=== PATIENT | female | born 1945 | race Caucasian/White ===

== ENCOUNTER 2016-12-31 18:35 | Observation (INO) ==
--- NOTE | 2016-12-31 18:53 | Emergency Department Note ---
Disposition Clinical Impression: Chest pain Disposition: Admitted As Inpatient Condition: Fair General Adult HPI - General Chief complaint: ED Chest Pain Stated complaint: "chest discomfort" Time Seen by Provider: 12/31/16 18:48 Source: patient Limitations: no limitations - History of Present Illness Pain Scale: 5 - Related Data Home Medications Medication Instructions Recorded Confirmed Calcium Carbonate/Vitamin D3 1 each PO BID 11/13/15 12/31/16 [Calcium 600 + Vit D Softgel] Hydrochlorothiazide 25 mg PO DAILY 11/13/15 12/31/16 Potassium Chloride [K-Tab ER] 20 meq PO TID 11/13/15 12/31/16 Cholecalciferol (D-3) [Vitamin D] 5,000 unit PO DAILY 09/17/16 12/31/16 Diazepam [Valium] 5 mg PO HS PRN 12/31/16 12/31/16 Previous Rx's Medication Instructions Recorded Apixaban [Eliquis] 5 mg PO BID #60 tablet 09/18/16 Metoprolol XL (24 HR) Succ [Toprol 12.5 mg PO DAILY #30 tab.er.24h 09/19/16 Xl] Nitroglycerin 0.4 mg SL Q5MIN PRN #10 tab.subl 09/19/16 Raloxifene [Evista] 60 mg PO DAILY #90 tablet 11/15/16 Allergies Allergy/AdvReac Type Severity Reaction Status Date / Time methocarbamol [From Robaxin] Allergy Hives Verified 07/20/15 08:56 promethazine [From Phenergan] AdvReac See Verified 07/20/15 08:56 Comments Past Medical History - Past Medical History Medical history: Reports: hyperlipidemia, hypertension Psychiatric history: Reports: no psych history - Social History Smoking Status: Never smoker Smokeless Tobacco Status: No Alcohol use: Reports: none Drug use: Reports: none Physical Exam - General Limitations: no limitations General appearance: alert Course Vital Signs Temperature 98.2 F 12/31/16 18:45 Pulse Rate 60 12/31/16 18:45 Respiratory Rate 20 12/31/16 18:45 Blood Pressure 144/82 12/31/16 18:45 O2 Sat by Pulse Oximetry 95 12/31/16 18:45 Temperature 98.2 F 12/31/16 18:45 Pulse Rate 60 12/31/16 18:45 Respiratory Rate 16 12/31/16 21:45 Blood Pressure 112/64 12/31/16 21:45 O2 Sat by Pulse Oximetry 95 12/31/16 18:45 Oxygen Delivery Oxygen Delivery Room Air Medical Decision Making - Lab Data Result diagrams: 12/31/16 19:14 12/31/16 19:14 Lab Results 12/31/16 12/31/16 12/31/16 Range/Units 19:14 19:14 19:14 WBC 4.1 L (4.3-11.1) K/mcL RBC 3.59 L (3.82-4.97) M/mcL Hgb 11.2 L (11.5-15.4) g/dL Hct 33.3 L (35.3-44.9) % MCV 92.8 (83.0-100.0) fL MCH 31.2 (28.0-33.3) pg MCHC 33.6 (31.6-35.5) g/dL RDW 12.7 (11.5-14.5) % Plt Count 166 (140-400) K/mcL MPV 11.1 (9.4-12.4) fL Immature Gran % 0.2 (0-4) % Seg Neutrophils % 62.9 % Lymphocytes % 23.5 % Monocytes % 9.3 % Eosinophils % 3.4 % Basophils % 0.7 % Neutrophils # 2.6 (1.6-8.9) K/mcL Lymphocytes # 1.0 (0.6-4.6) K/mcL Monocytes # 0.4 (0.0-1.3) K/mcL Eosinophils # 0.1 (0.0-0.6) K/mcL Basophils # 0.0 (0.0-0.2) K/mcL PT 20.2 H (9.4-12.1) Seconds INR 1.8 APTT 37.5 H (26.0-36.0) Seconds Sodium (136-145) mEq/L Potassium (3.5-4.5) mEq/L Chloride (98-109) mEq/L Carbon Dioxide (19-29) mEq/L BUN (7-20) mg/dL Creatinine (0.57-1.11) mg/dL Est GFR ( Amer) (> 60) Est GFR (Non-Af Amer) (> 60) BUN/Creatinine Ratio (6-26) Glucose (70-99) mg/dL Calculated Osmolality (280-300) Calcium (8.6-10.8) mg/dL Troponin I (0-0.03) ng/mL B-Natriuretic Peptide 558 H (0-100) pg/mL 12/31/16 12/31/16 Range/Units 19:14 19:14 WBC (4.3-11.1) K/mcL RBC (3.82-4.97) M/mcL Hgb (11.5-15.4) g/dL Hct (35.3-44.9) % MCV (83.0-100.0) fL MCH (28.0-33.3) pg MCHC (31.6-35.5) g/dL RDW (11.5-14.5) % Plt Count (140-400) K/mcL MPV (9.4-12.4) fL Immature Gran % (0-4) % Seg Neutrophils % % Lymphocytes % % Monocytes % % Eosinophils % % Basophils % % Neutrophils # (1.6-8.9) K/mcL Lymphocytes # (0.6-4.6) K/mcL Monocytes # (0.0-1.3) K/mcL Eosinophils # (0.0-0.6) K/mcL Basophils # (0.0-0.2) K/mcL PT (9.4-12.1) Seconds INR APTT (26.0-36.0) Seconds Sodium 144 (136-145) mEq/L Potassium 3.2 L (3.5-4.5) mEq/L Chloride 108 (98-109) mEq/L Carbon Dioxide 27 (19-29) mEq/L BUN 17 (7-20) mg/dL Creatinine 0.78 (0.57-1.11) mg/dL Est GFR ( Amer) > 60 (> 60) Est GFR (Non-Af Amer) > 60 (> 60) BUN/Creatinine Ratio 22 (6-26) Glucose 133 H (70-99) mg/dL Calculated Osmolality 301 H (280-300) Calcium 9.5 (8.6-10.8) mg/dL Troponin I 0.01 (0-0.03) ng/mL B-Natriuretic Peptide (0-100) pg/mL Attestation Statement - Attestation Attestation: I examined this patient and my medical decision-making was reviewed with the [employer] EGG/PA/Advanced Practice Nurse/Resident Physician. I agree with the documented findings, disposition and treatment plan as described except to the extent set forth below. Colv-qa-pumb time provided to face time provided. Patient ambulates to the treatment area complaining of chest discomfort that started this afternoon. She also felt fatigued and nauseated. No exertional dyspnea on exam. She appears in no acute distress.
--- NOTE | 2016-12-31 19:04 | Emergency Department Note ---
Disposition Clinical Impression: Chest pain Qualifiers: Chest pain type: unspecified Qualified Code(s): R07.9 - Chest pain, unspecified Disposition: Admitted As Inpatient Condition: Fair Time of Disposition: 20:34 Chest Pain HPI - General Chief Complaint: ED Chest Pain Stated Complaint: "chest discomfort" Time Seen by Provider: 12/31/16 18:48 Source: patient Limitations: no limitations Vital Signs Reviewed: Yes Nursing Notes Reviewed: Yes - History of Present Illness HPI Narrative: 71-year-old female history of A. fib on Eliquis, presenting with chest pain at rest, she started feeling 10 out of 10 chest pain last night, and had several episodes of chest pain around noon today, she describes as 10 out of 10, sharp chest pain in her substernal area with radiation to right chest, she currently feels one out of 10 chest pressure. Patient is a history of hypertension, family history of [place], and is a nonsmoker and nondiabetic, she was recently diagnosed with atrial fibrillation 3 months ago, placed on Eliquis with some metoprolol which she takes and has been rate controlled. With only a few episodes of refractory tachycardia that she is not evaluated for. 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 She stated that the pain was associated with shortness of breath. She denied nausea and vomiting. Patient denies abdominal pain currently denies nausea vomiting diarrhea constipation hematuria dysuria bleeding recent fever or chills. Pt complaint: chest pain Onset (ago): hour(s) Duration: intermittent, now resolved Onset: during rest Pain Location: substernal, right chest Severity: moderate Severity scale (1-10): 5 Pain Radiation: none Improves with: nothing Worsens with: nothing Associated symptoms: Reports: nausea Treatments prior to arrival chest pain: none - Related Data Home Medications Medication Instructions Recorded Confirmed Calcium Carbonate/Vitamin D3 1 each PO BID 11/13/15 11/15/16 [Calcium 600 + Vit D Softgel] Hydrochlorothiazide 25 mg PO DAILY 11/13/15 11/15/16 Potassium Chloride [K-Tab ER] 20 meq PO TID 11/13/15 11/15/16 Cholecalciferol (D-3) [Vitamin D] 5,000 unit PO DAILY 09/17/16 11/15/16 Diazepam [Valium] 5 mg PO HS PRN 12/31/16 12/31/16 Previous Rx's Medication Instructions Recorded Apixaban [Eliquis] 5 mg PO BID #60 tablet 09/18/16 Metoprolol XL (24 HR) Succ [Toprol 12.5 mg PO DAILY #30 tab.er.24h 09/19/16 Xl] Nitroglycerin 0.4 mg SL Q5MIN PRN #10 tab.subl 09/19/16 Raloxifene [Evista] 60 mg PO DAILY #90 tablet 11/15/16 Allergies Allergy/AdvReac Type Severity Reaction Status Date / Time methocarbamol [From Robaxin] Allergy Hives Verified 07/20/15 08:56 promethazine [From Phenergan] AdvReac See Verified 07/20/15 08:56 Comments Review of Systems: All systems were reviewed with historian and negative except as per below, or as documented in the HPI. Constitutional: Denies: fever, chills, weight changes Eyes: Denies: vision changes, eye pain ENT: Denies: nasal congestion, sore throat CV: + chest pain positive for dyspnea Denies: palpitations, leg swelling Resp: Denies: cough, dyspnea, wheezes, hemoptysis GI: Denies: abdominal pain, N/V/D/C, hematochezia All systems ED: reviewed and negative except as stated. Chest Pain PMH - Past Medical History Medical history: Reports: hyperlipidemia, hypertension Psychiatric history: Reports: no psych history - Social History Smoking Status: Never smoker Alcohol use: Reports: none Drug use: Reports: none Physical Exam Constitutional: Thin elderly female appears in no acute distress. HEENT: NCAT, sclera anicteric, PERRLA bilaterally, normal external ears bilaterally, nasal septum nondeviated, average dentition, MMM Neck: normal inspection, neck is supple, trachea midline, no JVD Resp: normal chest inspection, CTA bilaterally, no resp distress, symmetric chest rise CV: bradycardia, no m/g/r, Pulses +2 Rad, +2 DP/PT bilaterally, no pedal edema GI: normal inspection, Soft, NTND, BS present and normoactive Skin: No rashes, skin warm, dry, intact - General Limitations: no limitations General appearance: alert Course Course Narrative: 71-year-old female with history of A. fib on anticoagulation with L a twist, presents with chest pain or rest, several episodes throughout the day. Patient also has sinus bradycardia on EKG and rhythm monitoring, no acute pain now it did resolve spontaneously, or aspirin, the chest pain workup with chest x-ray troponins reassess. - Reevaluation(s) Reevaluation #1: Admitted to Dr Ly in stable condition for cp rule out Vital Signs Temperature 98.2 F 12/31/16 18:45 Pulse Rate 60 12/31/16 18:45 Respiratory Rate 20 12/31/16 18:45 Blood Pressure 144/82 12/31/16 18:45 O2 Sat by Pulse Oximetry 95 12/31/16 18:45 Temperature 98.2 F 12/31/16 18:45 Pulse Rate 60 12/31/16 18:45 Respiratory Rate 20 12/31/16 18:45 Blood Pressure 144/82 12/31/16 18:45 O2 Sat by Pulse Oximetry 95 12/31/16 18:45 Oxygen Delivery Oxygen Delivery Room Air Chest Pain - MDM Narrative Medical decision making narrative: 71-year-old female A. fib on health course and metoprolol, presents with chest pain at rest throughout the day today, now resolved, given aspirin, troponin negative EKG shows sinus bradycardia subtle T-wave inversions that appear on previous EKG, BNP was elevated evidence of heart failure clinically, chest x- ray negative, making to medicine for further workup including trending troponins and possible repeat echo and cardioogy consult - Differential Diagnosis Likely: fracture of rib, atypical chest pain, chest pain - Medical Records Medical records reviewed: Yes I reviewed the patient's medical records. - Lab Data Lab results reviewed: Yes I reviewed the patient's lab results. Result diagrams: 12/31/16 19:14 12/31/16 19:14 Lab Results 12/31/16 12/31/16 12/31/16 Range/Units 19:14 19:14 19:14 WBC 4.1 L (4.3-11.1) K/mcL RBC 3.59 L (3.82-4.97) M/mcL Hgb 11.2 L (11.5-15.4) g/dL Hct 33.3 L (35.3-44.9) % MCV 92.8 (83.0-100.0) fL MCH 31.2 (28.0-33.3) pg MCHC 33.6 (31.6-35.5) g/dL RDW 12.7 (11.5-14.5) % Plt Count 166 (140-400) K/mcL MPV 11.1 (9.4-12.4) fL Immature Gran % 0.2 (0-4) % Seg Neutrophils % 62.9 % Lymphocytes % 23.5 % Monocytes % 9.3 % Eosinophils % 3.4 % Basophils % 0.7 % Neutrophils # 2.6 (1.6-8.9) K/mcL Lymphocytes # 1.0 (0.6-4.6) K/mcL Monocytes # 0.4 (0.0-1.3) K/mcL Eosinophils # 0.1 (0.0-0.6) K/mcL Basophils # 0.0 (0.0-0.2) K/mcL PT 20.2 H (9.4-12.1) Seconds INR 1.8 APTT 37.5 H (26.0-36.0) Seconds Sodium (136-145) mEq/L Potassium (3.5-4.5) mEq/L Chloride (98-109) mEq/L Carbon Dioxide (19-29) mEq/L BUN (7-20) mg/dL Creatinine (0.57-1.11) mg/dL Est GFR ( Amer) (> 60) Est GFR (Non-Af Amer) (> 60) BUN/Creatinine Ratio (6-26) Glucose (70-99) mg/dL Calculated Osmolality (280-300) Calcium (8.6-10.8) mg/dL Troponin I (0-0.03) ng/mL B-Natriuretic Peptide 558 H (0-100) pg/mL 12/31/16 12/31/16 Range/Units 19:14 19:14 WBC (4.3-11.1) K/mcL RBC (3.82-4.97) M/mcL Hgb (11.5-15.4) g/dL Hct (35.3-44.9) % MCV (83.0-100.0) fL MCH (28.0-33.3) pg MCHC (31.6-35.5) g/dL RDW (11.5-14.5) % Plt Count (140-400) K/mcL MPV (9.4-12.4) fL Immature Gran % (0-4) % Seg Neutrophils % % Lymphocytes % % Monocytes % % Eosinophils % % Basophils % % Neutrophils # (1.6-8.9) K/mcL Lymphocytes # (0.6-4.6) K/mcL Monocytes # (0.0-1.3) K/mcL Eosinophils # (0.0-0.6) K/mcL Basophils # (0.0-0.2) K/mcL PT (9.4-12.1) Seconds INR APTT (26.0-36.0) Seconds Sodium 144 (136-145) mEq/L Potassium 3.2 L (3.5-4.5) mEq/L Chloride 108 (98-109) mEq/L Carbon Dioxide 27 (19-29) mEq/L BUN 17 (7-20) mg/dL Creatinine 0.78 (0.57-1.11) mg/dL Est GFR ( Amer) > 60 (> 60) Est GFR (Non-Af Amer) > 60 (> 60) BUN/Creatinine Ratio 22 (6-26) Glucose 133 H (70-99) mg/dL Calculated Osmolality 301 H (280-300) Calcium 9.5 (8.6-10.8) mg/dL Troponin I 0.01 (0-0.03) ng/mL B-Natriuretic Peptide (0-100) pg/mL - Radiology Data Radiology results reviewed: Yes I reviewed the patient's radiology results. Chest X-Ray 12/31/16 18:49 IMPRESSION: Cardiomegaly, no acute pulmonary disease. D/ / 12/31/2016 20:09:59 Sunil Greer MD / [facility] Interpreting Provider: Sunil Greer MD - EKG Data EKG attestation: Yes I reviewed and interpreted this EKG. EKG shows normal: sinus rhythm Rate: bradycardia (MT 137; QRS 92; QT411) [place]/QRS: normal ST segment depression in: II, v5, v6 Interpretation: unchanged when compared to prior tracing (date) (2015) - Core Measures AMI Core Measures Followed: Yes Heart Score - Score History: Slightly Suspicious EKG: Non Specific repolarisation Disturbance Age: Greater than 65 Risk Factors: 1-2 risk factors Troponin: Less than normal limit HEART Score Total: 4
[2016-12-31] MEDS ORDERED: Aspirin 81 MG TAB.CHEW PO ONE (19:07)
[2016-12-31 19:23] LABS: Basophils % 0.7 %; Eosinophils # 0.1 K/mcL (0.0-0.6); Eosinophils % 3.4 %; Hematocrit 33.3 % (35.3-44.9); Hemoglobin 11.2 g/dL (11.5-15.4); Immature Granulocytes % 0.2 % (0-4); Lymphocytes % 23.5 %; Mean Corpuscular HGB Conc 33.6 g/dL (31.6-35.5); Mean Corpuscular Hemoglobin 31.2 pg (28.0-33.3); Mean Corpuscular Volume 92.8 fL (83.0-100.0); Mean Platelet Volume 11.1 fL (9.4-12.4); Monocytes # 0.4 K/mcL (0.0-1.3); Monocytes % 9.3 %; Neutrophils # 2.6 K/mcL (1.6-8.9); Platelet Count 166 K/mcL (140-400); Red Blood Count 3.59 M/mcL (3.82-4.97); Red Cell Distribution Width 12.7 % (11.5-14.5); Segmented Neutrophils % 62.9 %
[2016-12-31 19:25] LABS: INR 1.8; Prothrombin Time 20.2 Seconds (9.4-12.1)
[2016-12-31 19:28] LABS: Activated Partial Thrombo Time 37.5 Seconds (26.0-36.0)
[2016-12-31 19:33] LABS: BUN/Creatinine Ratio 22 (6-26); Blood Urea Nitrogen 17 mg/dL (7-20); Calcium 9.5 mg/dL (8.6-10.8); Carbon Dioxide 27 mEq/L (19-29); Chloride 108 mEq/L (98-109); Glucose 133 mg/dL (70-99); Osmolality,Calculated 301 (280-300); Potassium 3.2 mEq/L (3.5-4.5); Sodium 144 mEq/L (136-145); eGFR For African Americans > 60 (> 60); eGFR For Non-African Americans > 60 (> 60)
[2016-12-31] MEDS ORDERED: Acetaminophen 325 MG TABLET PO PRN (22:08)
[2016-12-31] MEDS ORDERED: Naloxone 0.4 MG/ML INJ IVP PRN (22:08)
[2016-12-31] MEDS ORDERED: *HR* Morphine 2 MG/ML SYRINGE IVP PRN (22:08)
[2016-12-31] MEDS ORDERED: Ondansetron ODT 4 MG TAB.RAPDIS SL PRN (22:08)
[2016-12-31] MEDS ORDERED: diazePAM 5 MG TABLET PO PRN (22:13)
--- NOTE | 2016-12-31 22:24 | Internal Med History&Physical ---
<VallecilloBruno - Last Filed: 12/31/16 22:24> Date of Encounter: 12/31/16 Time of Encounter: 22:18 Assessment and Plan (1) Chest pain Current visit: Yes Status: Acute Unclear etiology at this point, but cannot rule out cardiac She recently had echocardiogram obtained 3 months ago so there is no need for repeat Will order pharmacologic stress test to be performed tomorrow; will make NPO at midnight and hold home beta blockers Start on low dose ASA and Lipitor daily; will check Lipid panel in AM Initial troponin negative, will trend x2 Qualifiers: Chest pain type: unspecified Qualified Code(s): R07.9 - Chest pain, unspecified; R07.8 - Other chest pain (2) Paroxysmal atrial fibrillation Current visit: No Status: Chronic She is currently in NSR but is slightly bradycardic Will home Toprol for upcoming stress test and low HR 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 Crump is a 71 year old female who presents to the ED with chest pain that started last night at 10 PM. She states she was trying to go to bed last night and felt sudden, sharp chest pain that radiated to the right side of her chest. It lasted only a few seconds and resolved spontaneously. Today, patient had another episode around noon and again prior to arrival. She has associated shortness of breath during these episodes but denies any palpitations, diaphoresis, nausea, or vomiting. She denies recent illness or sick contacts. Of note, patient was recently diagnosed with AFib 3 months ago where she was admitted her with chest pain. She is currently on Toprol and Eliquis, but denies any issues with bleeding. Patient did mention also having chest pain in 2013 and she received a C and also had stress tests done, all of which were negative. Currently, patient is not having any chest pain and denies any issues with shortness of breath, nausea, vomiting, fevers, constipation or diarrhea. Past Med Surg Social Fam HX - Past Medical History Medical history: hyperlipidemia, hypertension Psychiatric history: no psych history - Social History Smoking Status: Never smoker Smokeless Tobacco Status: No Alcohol use: none Drug use: none Internal Medicine - H&P: Meds Calcium Carbonate/Vitamin D3 [Calcium 600 + Vit D Softgel] 1 each PO BID [History] Hydrochlorothiazide 25 mg PO DAILY 11/13/15 [History] Potassium Chloride [K-Tab ER] 20 meq PO TID 11/13/15 [History] Cholecalciferol (D-3) [Vitamin D] 5,000 unit PO DAILY 09/17/16 [History] Apixaban [Eliquis] 5 mg PO BID #60 tablet 09/18/16 [Rx] Metoprolol XL (24 HR) Succ [Toprol Xl] 12.5 mg PO DAILY #30 tab.er.24h 09/19/16 [Rx] Nitroglycerin 0.4 mg SL Q5MIN PRN #10 tab.subl 09/19/16 [Rx] Raloxifene [Evista] 60 mg PO DAILY #90 tablet 11/15/16 [Rx] Diazepam [Valium] 5 mg PO HS PRN 12/31/16 [History] Allergies methocarbamol [From Robaxin] Allergy (Verified 07/20/15 08:56) Hives promethazine [From Phenergan] Adverse Reaction (Verified 07/20/15 08:56) See Comments muscle spasms All Systems PM: A 10-system review of systems was performed and is negative for pertinent findings except as documented above in the HPI. - Constitutional Constitutional: no chills, no fever(s), no night sweats - EENT Eyes: no change in vision, no discharge, no pain, no photophobia Ears: no ear discharge, no ear pain, no tinnitus Nose, mouth and throat: no dysphagia, no nasal discharge, no neck pain, no sore throat - Cardiovascular Cardiovascular ROS IM: chest pain, dyspnea, no diaphoresis, no lightheadedness, no palpitations, no syncope - Respiratory Respiratory: no cough, no dyspnea, no wheezing, no excessive phlegm production - Gastrointestinal Gastrointestinal: no abdominal pain, no diarrhea, no hematemesis, no hematochezia, no melena, no nausea, no vomiting - Genitourinary Genitourinary: no change in urinary stream, no dysuria, no flank pain, no hematuria - Musculoskeletal Musculoskeletal ROS IM: no numbness, no tingling - Integumentary Integumentary IM: no rash, no unusual bruising - Neurological Neurological ROS: no confusion, no convulsions, no focal weakness, no numbness, no tingling, no tremor(s) - Hematologic/Lymphatic Hematologic/Lymphatic: no easy bruising - Constitutional Vitals: Temp Pulse Resp BP Pulse Ox 98.2 F 60 16 112/64 95 12/31/16 18:45 12/31/16 18:45 12/31/16 21:45 12/31/16 21:45 12/31/16 18:45 General appearance: Present: cooperative, pleasant, no acute distress, answers questions appropriately - Head Head exam: Present: atraumatic, normocephalic - Eye Eye exam: Present: PERRL, conjuntiva pink, sclera anicteric - Neck Neck exam general surgery: Present: supple, trachea midline. Absent: lymphadenopathy - Respiratory Respiratory exam: Present: CTAB. Absent: accessory muscle use, rales, rhonchi, wheezes - Cardiovascular Cardiovascular exam: Present: bradycardia, +S1, +S2. Absent: diastolic murmur, gallop, rubs, systolic murmur - GI/Abdominal GI/Abdominal exam: Present: normal bowel sounds, soft, no peritoneal signs. Absent: distended, tenderness - Extremities Exam Extremities exam: Present: warm, radial pulses palpable and symetrical. Absent : calf tenderness, cyanotic, pedal edema - Neurological Exam Neurological exam: Present: alert, no focal deficits. Absent: facial droop, speech deficit - Skin Skin exam: Present: dry, intact Internal Med - H&P Results - Labs CBC & Chem 7: 12/31/16 19:14 12/31/16 19:14 <Sandie Ly - Last Filed: 12/31/16 23:01> Date of Encounter: 12/31/16 Assessment and Plan (1) Chest pain Current visit: Yes Status: Acute Qualifiers: Chest pain type: other chest pain Qualified Code(s): R07.89 - Other chest pain; R07.8 - Other chest pain (2) Hypertension Current visit: Yes Status: Chronic Qualifiers: Qualified Code(s): I10 - Essential (primary) hypertension (3) Paroxysmal atrial fibrillation Current visit: No Status: Chronic Internal Medicine - H&P: HPI History of present illness: Ms. Crump is a 71 year old female All Systems PM: A 10-system review of systems was performed and is negative for pertinent findings except as documented above in the HPI. - Constitutional Vitals: Temp Pulse Resp BP Pulse Ox 98.2 F 60 16 112/64 95 12/31/16 18:45 12/31/16 18:45 12/31/16 21:45 12/31/16 21:45 12/31/16 18:45 Internal Med - H&P Results - Labs CBC & Chem 7: 12/31/16 19:14 12/31/16 19:14 - Attending Attestation I examined this patient and my medical decision-making was reviewed with the Resident Physician. I agree with the documented history of present illness, review of systems, past medical, surgical social and family histories and examination findings, disposition and treatment plan as described above except to any changes set forth below. 71-year-old female patient with history of hypertension, breast cancer, on Eliquis for anticoagulation presented to the ER with right-sided chest pain. Sharp and lasting just a few seconds but severe and intense. No relation to activity. Began today. Has been having chest pressure in her central chest occasionally. Negative left heart catheterization 3 years back. On examination: Patient is awake, alert and oriented. Respiratory examination shows normal breath sounds bilaterally. Cardiovascular examination shows regular rhythm and normal heart sounds without any murmurs. No chest wall tenderness. No pedal edema. EKG shows normal sinus rhythm with bradycardia. ST depression noted in leads 2 , V5 and V6 which is similar compared to previous EKG. Chest x-ray shows cardiomegaly without any congestive or infiltrative changes. Right-sided chest pain: Most likely musculoskeletal/costochondritis-like pain. However given history of hypertension and age, sex high risk for coronary artery disease. Will place on telemetry. Trend troponins. Cardiac stress test tomorrow. Chronic hypokalemia: Potassium is 3.2. Will replace orally. Paroxysmal atrial fibrillation: Patient appears to be in sinus rhythm at this time. Continue Eliquis.
[2016-12-31] MEDS ORDERED: Nitroglycerin 0.4 MG TAB.SUBL SL PRN (23:01)
[2016-12-31] MEDS: APIXABAN 5 MG TABLET PO SCH (23:01)
[2017-01-01 00:20] LABS: Basophils % 0.5 %; Eosinophils # 0.1 K/mcL (0.0-0.6); Hematocrit 32.1 % (35.3-44.9); Hemoglobin 10.6 g/dL (11.5-15.4); Immature Granulocytes % 0.2 % (0-4); Lymphocytes # 0.9 K/mcL (0.6-4.6); Lymphocytes % 20.5 %; Mean Corpuscular Hemoglobin 30.5 pg (28.0-33.3); Mean Corpuscular Volume 92.5 fL (83.0-100.0); Mean Platelet Volume 10.6 fL (9.4-12.4); Monocytes # 0.4 K/mcL (0.0-1.3); Monocytes % 9.6 %; Neutrophils # 2.8 K/mcL (1.6-8.9); Platelet Count 151 K/mcL (140-400); Red Blood Count 3.47 M/mcL (3.82-4.97); Red Cell Distribution Width 12.8 % (11.5-14.5); Segmented Neutrophils % 66.2 %
[2017-01-01 00:36] LABS: BUN/Creatinine Ratio 28 (6-26); Blood Urea Nitrogen 21 mg/dL (7-20); Carbon Dioxide 28 mEq/L (19-29); Chloride 108 mEq/L (98-109); Chol/HDL Ratio 3.1 (0-4.9); Cholesterol 159 mg/dL (< 200); Glucose 111 mg/dL (70-99); HDL Cholesterol 51 mg/dL (40-59); LDL Cholesterol,Calculated 91 mg/dL (0-99); Magnesium 1.3 mg/dL (1.6-2.6); Osmolality,Calculated 300 (280-300); Phosphorous 4.1 mg/dL (2.3-4.7); Potassium 3.4 mEq/L (3.5-4.5); Sodium 143 mEq/L (136-145); Triglycerides 87 mg/dL (< 150); eGFR For African Americans > 60 (> 60); eGFR For Non-African Americans > 60 (> 60)
[2017-01-01] MEDS ORDERED: APIXABAN 5 MG TABLET PO SCH (09:00)
[2017-01-01] MEDS ORDERED: hydroCHLOROthiazide 25 MG TABLET PO SCH (09:00)
[2017-01-01] MEDS ORDERED: Aspirin 81 MG TAB.CHEW PO SCH (09:00)
--- NOTE | 2017-01-01 09:58 | Electrocardiograph Report ---
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
[2017-01-01] MEDS: APIXABAN 5 MG TABLET PO SCH (09:59)
[2017-01-01] MEDS: Regadenoson 0.4 MG/5 ML SYRINGE IVP ONE ×2 (10:06→10:52)
--- NOTE | 2017-01-01 11:05 | Nuclear Medicine Stress Report ---
Regadenoson Nuclear Stress Name: Vandana Crump Date of Study: 01/01/2017 Date: 1945 Ht: 60.0 in Medical Record#: [id number] Age: 71 Wt: 124.0 lb Gender: Female Order #: [id number] Location: [facility] Room: [facility] Supervising Provider: Lamine Lai CNP Reading Physician: Jay Flynn MD, [facility] Ordering Physician: Mary Valladares CNP Primary Care Physician: Marcos Bolanos DO Stress Technologist: Bridget Michelle PIG FARM MANAGER, CCT Cigarette Machines Mechanic: Shan Quispe Indications: Chest Pain Impression: Patient was in a junctional rhythm throughout the study. Pharmacologic stress ECG is non-diagnostic for ischemia due to baseline ST-T wave abnormalities. Gated LVEF = 67%. Perfusion imaging was negative for ischemia or infarct. History: Hypertension Hypercholesteremia Stress Test Summary: Stress Test Type: Pharmacologic Regadenoson 0.4mg/5ml given IV Baseline Information: Initial Heart Rate: 56 Blood Pressure: 152/82 Stress Information: Test Terminated Due to (primary): Arrhythmia Maximum Blood Pressure: 122/68 Maximum Heart Rate: 95 Percent Maximum Heart Rate Achieved: 63 Double Product: [id number] Symptoms: No chest symptoms Nuclear Summary: SPECT myocardial perfusion imaging using Tc99m Sestamibi given intravenously was performed at rest and following cardiac stress testing. The resting images were obtained following initial dose of 10.8 mCi. Following stress an additional dose of 34.7 mCi was given at peak exercise or 30 seconds post regadenoson infusion. Findings: Stress Note * Resting ECG demonstrated junctional rhythm (56 bpm), poor r-wave progression, non-specific ST-T wave abnormalities. * Patient was in a junctional rhythm throughout the study. * Patient had no chest pain during stress. * Pharmacologic stress ECG is non-diagnostic for ischemia due to baseline ST-T wave abnormalities. Hemodynamic responses * Normal hemodynamic responses to pharmacologic stress. Study Quality * Study quality is good. Gated EF % * Gated LVEF = 67%. Left Ventricle * The left ventricle is not dilated. * Normal Segmental Perfusion in rest. * Normal segmental perfusion in stress. TID * No evidence of transient ischemic dilatation. Updated by Jay Flynn MD, [facility] on 01/01/2017 10:59:28 AM electronically signed on 01/01/2017 10:59:55 AM with status of Final
[2017-01-01 11:07] VITALS: BP 139/84
--- NOTE | 2017-01-01 13:13 | Discharge Summary ---
Date of Encounter: 01/01/17 Time of Encounter: 12:30 - Discharge Diagnosis (1) Chest pain Priority: Primary Status: Resolved Comments: Patient denied chest pain or shortness of breath throughout this admission. Chest x-ray negative. Recent echocardiogram revealing ejection fraction of 45- 50% with moderate diastolic dysfunction. Patient euvolemic on examination drops admission. Troponins negative. Stress test negative. ACS ruled out. (2) Hypokalemia Priority: Secondary Status: Chronic Comments: Acute on chronic for this patient. She states that she has had low potassium for quite some time and states that supplements are not helping. Of note, she is hypomagnesemic and does not appear to have been addressed, started on magnesium supplements, followed by outpatient (3) Hypomagnesemia Priority: Primary Status: Acute (4) Hypertension Priority: Secondary Status: Chronic Comments: Controlled, recommend continued follow-up outpatient. Qualifiers: Qualified Code(s): I10 - Essential (primary) hypertension (5) DVT prophylaxis Priority: Primary Status: Acute Comments: Observation patient. Up ad marianne. On Eliquis (6) Paroxysmal atrial fibrillation Priority: Secondary Status: Chronic Comments: rate controlled/mildly bradycardic at times. Continue Eliquis - Discharge Medications Prescriptions: Magnesium Oxide [Mag-Ox] 400 mg PO BID #60 tablet Home Medications: Calcium Carbonate/Vitamin D3 [Calcium 600 + Vit D Softgel] 1 each PO BID [History] Hydrochlorothiazide 25 mg PO DAILY 11/13/15 [History] Potassium Chloride [K-Tab ER] 20 meq PO TID 11/13/15 [History] Cholecalciferol (D-3) [Vitamin D] 5,000 unit PO DAILY 09/17/16 [History] Apixaban [Eliquis] 5 mg PO BID #60 tablet 09/18/16 [Rx] Metoprolol XL (24 HR) Succ [Toprol Xl] 12.5 mg PO DAILY #30 tab.er.24h 09/19/16 [Rx] Nitroglycerin 0.4 mg SL Q5MIN PRN #10 tab.subl 09/19/16 [Rx] Raloxifene [Evista] 60 mg PO DAILY #90 tablet 11/15/16 [Rx] Diazepam [Valium] 5 mg PO HS PRN 12/31/16 [History] Magnesium Oxide [Mag-Ox] 400 mg PO BID #60 tablet 01/01/17 [Rx] Allergies/Adverse Reactions: Allergies methocarbamol [From Robaxin] Allergy (Verified 07/20/15 08:56) Hives promethazine [From Phenergan] Adverse Reaction (Verified 07/20/15 08:56) See Comments muscle spasms Procedures/tests Complete & Pending: Procedures Performed prior 72 hours Category Date Time Status NM bella perf SPECT multi [NM] Routine Exams 12/31/16 22:15 Taken SP pharm nuclear stress Routine Y 01/01/17 07:30 Completed Date of admission: 12/31/16 20:39 Primary care physician: Jake Alas Discharging clinician: Mary Valladares Anticipated date of discharge: 01/01/17 - Patient Status Disposition: Home, Self-Care Condition: Good Functional capacity at discharge: independent ambulation Overall status at discharge: patient is back to baseline - Discharge Instructions Follow Up With: Lamine Lai CNP [Advanced Practice Nurse] - 01/08/17 7:45 am Marcos Bolanos DO [Primary Care Provider] - 01/06/17 12:00 pm Additional Instructions: Follow-up with primary care providers as scheduled - Diet and Activity Activity: increase activity as tolerated Diet: low salt diet Hospital course: Ms. Crump is a 71 year old female with past medical history of hypertension and hyperlipidemia. Patient presented to the emergency department chief complaint chest pain started on the night prior to presentation when she was trying to go to bed when she felt a sudden, sharp chest pain that radiated to the right side of her chest. Patient stating it lasted a few seconds and resolved spontaneously. Then the next day, the day of presentation, she had another episode and this episode was associated with shortness of breath. She denied palpitations, diaphoresis, nausea or vomiting. Workup in the emergency department unremarkable. Chest x-ray negative for acute processes. Patient was admitted to the hospitalist service for further evaluation and management. Troponins were negative. Patient had a nuclear stress test that was negative for ischemia or infarct. Patient was asymptomatic throughout this admission and denied chest pain or shortness of breath. Acute coronary syndrome ruled out. Of note, patient was noted to be hypokalemic which is chronic for her. Patient stating she has been on potassium supplements for quite some time but her potassium remains low. Also of note, she was hypomagnesemic and was started on magnesium supplements. Follow-up outpatient. Her echocardiogram from 09/18/16 revealed an ejection fraction of 45-50% with moderate diastolic dysfunction. She was euvolemic on examination throughout this admission and denied shortness of breath. No diagnosis of heart failure rendered during this admission. She was discharged home in stable condition with close outpatient follow-up recommended. ITS Impressions Chest X-Ray 12/31/16 18:49 IMPRESSION: Cardiomegaly, no acute pulmonary disease. D/ / 12/31/2016 20:09:59 Sunil Greer MD / lgray Interpreting Provider: Sunil Greer MD Nuclear stress test impression: Patient was in a junctional rhythm throughout the study. Pharmacologic stress ECG is nondiagnostic for ischemia due to baseline ST-T wave abnormalities. Gated LVEF equals 67%. Perfusion imaging was negative for ischemia or infarct. - Time Spent with Patient Total time spent providing and/or coordinating discharge services: - Constitutional Vitals: Temp Pulse Resp BP Pulse Ox 97.9 F 56 16 139/84 96 01/01/17 11:05 01/01/17 11:05 01/01/17 11:05 01/01/17 11:05 01/01/17 11:05 General appearance: Present: cooperative, A&O X 3, pleasant, no acute distress, answers questions appropriately - Head Head exam: Present: atraumatic, normocephalic - Eye Eye exam: Present: PERRL, conjuntiva pink, sclera anicteric Pupils: Present: PERRL - Neck Neck exam general surgery: Present: supple, trachea midline. Absent: lymphadenopathy - Respiratory Respiratory exam: Present: CTAB. Absent: accessory muscle use, rales, respiratory distress, rhonchi, wheezes - Cardiovascular Cardiovascular exam: Present: RRR, +S1, +S2. Absent: diastolic murmur, gallop, rubs, systolic murmur - GI/Abdominal GI/Abdominal exam: Present: normal bowel sounds, soft, no peritoneal signs. Absent: distended, tenderness - Extremities Exam Extremities exam: Present: warm, radial pulses palpable and symetrical. Absent : calf tenderness, cyanotic, pedal edema - Neurological Exam Neurological exam: Present: alert, CN II-XII intact, normal gait, oriented X3, no focal deficits, strengths equal and symetr throughout. Absent: pronater drift, facial droop, speech deficit - Skin Skin exam: Present: dry, intact, normal color, warm
== END 2017-01-01 14:17 | disposition home or self-care (01) ==
LOC: EMEROO 18:35 → 3BNU 18:35
PROVIDERS: ADMIT Internal Medicine; ATTEND Nurse Practitioner Family

== ENCOUNTER 2017-09-17 05:55 | Observation (INO) ==
[2017-09-17] MEDS ORDERED: Aspirin 81 MG TAB.CHEW PO ONE (06:12)
[2017-09-17 06:33] LABS: Basophils % 0.3 %; Eosinophils # 0.1 K/mcL (0.0-0.6); Eosinophils % 1.3 %; Hematocrit 38.9 % (35.3-44.9); Hemoglobin 12.6 g/dL (11.5-15.4); Immature Granulocytes % 0.6 % (0-4); Lymphocytes # 1.6 K/mcL (0.6-4.6); Lymphocytes % 20.9 %; Mean Corpuscular HGB Conc 32.4 g/dL (31.6-35.5); Mean Corpuscular Hemoglobin 31.1 pg (28.0-33.3); Mean Platelet Volume 9.8 fL (9.4-12.4); Monocytes # 0.5 K/mcL (0.0-1.3); Monocytes % 6.6 %; Neutrophils # 5.4 K/mcL (1.6-8.9); Platelet Count 237 K/mcL (140-400); Red Blood Count 4.05 M/mcL (3.82-4.97); Red Cell Distribution Width 13.2 % (11.5-14.5); Segmented Neutrophils % 70.3 %
[2017-09-17] MEDS: Nitroglycerin 0.4 MG TAB.SUBL SL PRN ×2 (06:33→06:45)
--- NOTE | 2017-09-17 06:34 | Emergency Department Note ---
START Narrative - START START: I examined this patient and my medical decision-making was reviewed with the Resident Physician. I agree with the documented findings, disposition and treatment plan as described except to the extent set forth below. 71 year old female presnts to the ED with midsternal chest pain that started at 0200 this morning and states that she took nitro at home which has improved the pain. Bob had a cardiac catherization in the early spring of 2016. Patient will be evaluated with cardiopulmonary workpu in addition to asa and nitro therapy for her chest pain. Bob lockwood signed out to the day team with intention to admit to medicine for cp rule out ACS.
--- NOTE | 2017-09-17 06:36 | Emergency Department Note ---
Disposition Clinical Impression: Chest pain Qualifiers: Chest pain type: unspecified Qualified Code(s): R07.9 - Chest pain, unspecified Disposition: Still a Patient Condition: Good Forms: ED Satisfaction Letter Chest Pain HPI - General Chief Complaint: ED Chest Pain Stated Complaint: CP Time Seen by Provider: 09/17/17 05:59 Source: patient Limitations: no limitations Vital Signs Reviewed: Yes Nursing Notes Reviewed: Yes - History of Present Illness HPI Narrative: Patient presents for evaluation of chest pain that is substernal in nature. Does not radiate. Associated with nausea but no vomiting. Patient is unable to characterize other than "pain". Patient has not had similar pain. Patient has had chest pain with her A. fib in the past but this is not similar. Pain was initially relieved with at-home nitroglycerin 1. Pain returned and only partially relieved with the second nitroglycerin. Worse with exertion. On Eliquis for anticoagulation Nonsmoker. Denies drinking and recreational drug use. Severity scale (1-10): 10 - Related Data Home Medications Medication Instructions Recorded Confirmed Calcium Carbonate/Vitamin D3 1 each PO BID 11/13/15 02/20/17 [Calcium 600 + Vit D Softgel] Potassium Chloride [K-Tab ER] 20 meq PO TID 11/13/15 02/20/17 hydroCHLOROthiazide 25 mg PO DAILY 11/13/15 02/20/17 [Hydrochlorothiazide] Cholecalciferol (D-3) [Vitamin D] 5,000 unit PO DAILY 09/17/16 02/20/17 diazePAM [Valium] 5 mg PO HS PRN 12/31/16 02/20/17 Biotin 10 mg PO DAILY 02/20/17 02/20/17 Previous Rx's Medication Instructions Recorded Nitroglycerin 0.4 mg SL Q5MIN PRN #10 tab.subl 09/19/16 Raloxifene [Evista] 60 mg PO DAILY #90 tablet 11/15/16 Magnesium Oxide [Mag-Ox] 400 mg PO BID #60 tablet 01/01/17 Apixaban [Eliquis] 5 mg PO BID #60 tablet 02/22/17 Omeprazole [PriLOSEC] 20 mg PO DAILY@0630 #30 capsule. 02/22/17 Sotalol [Betapace] 40 mg PO Q12HR #30 tablet 02/22/17 Allergies Allergy/AdvReac Type Severity Reaction Status Date / Time methocarbamol [From Robaxin] Allergy Hives Verified 09/17/17 06:02 promethazine [From Phenergan] AdvReac Muscle Pain Verified 09/17/17 06:02 Review of Systems: CONSTITUTIONAL: No weight loss, fever, chills, weakness or fatigue. HEENT: Eyes: No visual changes. Ears, Nose, Throat: No hearing loss, difficulty talking or unable to swallow. SKIN: No rash or itching. CARDIOVASCULAR: Chest pain. No palpitations or edema. RESPIRATORY: No shortness of breath, cough or sputum. GASTROINTESTINAL: Nausea No anorexia, vomiting or diarrhea. No abdominal pain or blood. GENITOURINARY: No burning on urination or hematuria. NEUROLOGICAL: No headache, dizziness, syncope, paralysis, ataxia, numbness or tingling in the extremities. No change in bowel or bladder control. MUSCULOSKELETAL: No muscle pain, back pain, joint pain or stiffness. 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[employer]AC[employer]AND history - Social History Smoking Status: Never smoker Alcohol use: Reports: none Drug use: Reports: none Physical Exam General appearance: NAD, conversant Eyes: anicteric sclerae, moist conjunctivae; PERRL HENT: Atraumatic; oropharynx clear with moist mucous membranes and no mucosal ulcerations Neck: Normal inspection; Trachea midline; FROM, supple Lungs: CTA, with normal respiratory effort and no intercostal retractions CV: RRR, no MRGs Abdomen: Soft, non-tender; no rebound or gaurding Extremities: No peripheral edema or extremity lymphadenopathy Skin: Normal temperature; no rash, ulcers or lesions Psych: Appropriate mood and affect Neuro: alert and oriented to person, place and time - General Limitations: no limitations General appearance: alert, in no apparent distress Course - Reevaluation(s) Reevaluation #1: Labs, EKG, chest x-ray ordered. Patient signed out to the day team. Vital Signs Temperature 97.9 F 09/17/17 05:56 Pulse Rate 90 09/17/17 05:56 Respiratory Rate 20 09/17/17 05:56 Blood Pressure 170/85 09/17/17 05:56 O2 Sat by Pulse Oximetry 99 09/17/17 05:56 Temperature 97.9 F 09/17/17 05:56 Pulse Rate 90 09/17/17 05:56 Respiratory Rate 20 09/17/17 05:56 Blood Pressure 170/85 09/17/17 05:56 O2 Sat by Pulse Oximetry 99 09/17/17 06:08 Oxygen Delivery Oxygen Delivery Room Air Chest Pain - Medical Records Medical records reviewed: Yes I reviewed the patient's medical records. - Lab Data Lab results reviewed: Yes I reviewed the patient's lab results. Lab Results 09/17/17 Range/Units 06:25 PT 14.5 H (9.4-12.1) Seconds INR 1.3 - Radiology Data Radiology results reviewed: Yes I reviewed the patient's radiology results. - EKG Data EKG attestation: Yes I reviewed and interpreted this EKG. EKG results narrative: EKG shows atrial paced rhythm with ventricular rate of 71. WA interval 217. QRS 82. QTC 397. No significant ST elevations or depressions. EKG unchanged from previous of 02/22/17.
[2017-09-17 06:37] LABS: INR 1.3; Prothrombin Time 14.5 Seconds (9.4-12.1)
[2017-09-17 06:39] LABS: Activated Partial Thrombo Time 26.2 Seconds (26.0-36.0)
[2017-09-17 06:46] LABS: BUN/Creatinine Ratio 37 (6-26); Blood Urea Nitrogen 26 mg/dL (7-20); Carbon Dioxide 24 mEq/L (19-29); Chloride 108 mEq/L (98-109); Glucose 75 mg/dL (70-99); Osmolality,Calculated 295 (280-300); Potassium 3.6 mEq/L (3.5-4.5); Sodium 141 mEq/L (136-145); eGFR For African Americans > 60 (> 60); eGFR For Non-African Americans > 60 (> 60)
--- NOTE | 2017-09-17 07:06 | Emergency Department Note ---
Disposition Clinical Impression: Chest pain Qualifiers: Chest pain type: unspecified Qualified Code(s): R07.9 - Chest pain, unspecified Disposition: Admitted As Inpatient Condition: Good Referrals: Marcos Bolanos DO [Primary Care Provider] - Forms: ED Satisfaction Letter Chest Pain HPI - General Chief Complaint: ED Chest Pain Stated Complaint: CP Time Seen by Provider: 09/17/17 05:59 Source: patient Limitations: no limitations Vital Signs Reviewed: Yes Nursing Notes Reviewed: Yes - History of Present Illness Severity scale (1-10): 10 - Related Data Home Medications Medication Instructions Recorded Confirmed RX: Calcium Carbonate/Vitamin D3 1 each PO BID 11/13/15 09/17/17 [Calcium 600 + Vit D Softgel] RX: Potassium Chloride [K-Tab ER] 20 meq PO TID 11/13/15 09/17/17 RX: hydroCHLOROthiazide 25 mg PO DAILY 11/13/15 09/17/17 [Hydrochlorothiazide] RX: Cholecalciferol (D-3) [Vitamin 5,000 unit PO DAILY 09/17/16 09/17/17 D] RX: diazePAM [Valium] 5 mg PO HS PRN 12/31/16 09/17/17 RX: Biotin 10 mg PO DAILY 02/20/17 09/17/17 Gabapentin [Neurontin] 100 mg PO TID 09/17/17 09/17/17 Previous Rx's Medication Instructions Recorded RX: Raloxifene [Evista] 60 mg PO DAILY #90 tablet 11/15/16 RX: Magnesium Oxide [Mag-Ox] 400 mg PO BID #60 tablet 01/01/17 RX: Apixaban [Eliquis] 5 mg PO BID #60 tablet 02/22/17 RX: Sotalol [Betapace] 40 mg PO Q12HR #30 tablet 02/22/17 Allergies Allergy/AdvReac Type Severity Reaction Status Date / Time methocarbamol [From Robaxin] Allergy Hives Verified 09/17/17 06:02 promethazine [From Phenergan] AdvReac Muscle Pain Verified 09/17/17 06:02 Chest Pain PMH - Past Medical History Medical history: Reports: arthritis, atrial fibrillation, cancer, hyperlipidemia , hypertension Surgical history: Reports: appendectomy, cholecystectomy, hysterectomy Psychiatric history: Reports: no psych history NEGATIVE NOTCHER history: Reports: no NEGATIVE NOTCHER history - Social History Smoking Status: Never smoker Alcohol use: Reports: none Drug use: Reports: none Physical Exam - General Limitations: no limitations General appearance: alert, in no apparent distress Course Course Narrative: I introduced myself to the patient and family present. Reviewed her history. Please see prior physician's documentation for details. In brief she is a 71- year-old female with a history of atrial fibrillation on anticoagulation with pacemaker placement in February of this year due to bradycardia after antiarrhythmic management who comes in with chest pain. Woke her from sleep. She took nitroglycerin at home with resolution. It recurred soon after and took another nitroglycerin and it resolved. She had pain for the third time and decided to come in. She has been given 2 sublingual nitroglycerin here with resolution of her pain. Her EKG shows a paced rhythm. Initial troponin within normal limits. Currently waiting to admit to the hospitalist for chest pain rule out. Vital Signs Temperature 97.9 F 09/17/17 05:56 Pulse Rate 90 09/17/17 05:56 Respiratory Rate 20 09/17/17 05:56 Blood Pressure 170/85 09/17/17 05:56 O2 Sat by Pulse Oximetry 99 09/17/17 05:56 Temperature 97.9 F 09/17/17 05:56 Pulse Rate 59 09/17/17 07:20 Respiratory Rate 17 09/17/17 07:20 Blood Pressure 120/67 09/17/17 07:20 O2 Sat by Pulse Oximetry 97 09/17/17 07:20 Oxygen Delivery Oxygen Delivery Room Air Chest Pain - MDM Narrative Medical decision making narrative: 71-year-old female presents to the ER due to chest pain. 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 EKG demonstrates an atrially paced rhythm without ischemic features. Initial troponin within normal limits. Patient's pain resolved here with nitroglycerin and she is currently chest pain-free. Discussed with the hospitalist service and admitted for chest pain rule out. Chest X-Ray 09/17/17 06:12 IMPRESSION: No acute disease. D/ / Brady Mijares MD / Brady Mijares MD Interpreting Provider: Brady Mijares MD I examined this patient and my medical decision-making was reviewed with the Resident Physician. I agree with the documented findings, disposition and treatment plan as described except to the extent set forth below. Patient was signed out to me and Dr. Gaitan this morning from evening ER physician. Patient's workup was completed. Admitted patient for chest pain rule out. Waiting on hospice to call back. Patient's pain-free at this time. She is updated on plan and once hospitals calls back or admit her to the hospital for further workup. She is in agreement with plan. - Lab Data Lab results reviewed: Yes I reviewed the patient's lab results. Result diagrams: 09/17/17 06:25 09/17/17 06:25 Lab Results 09/17/17 09/17/17 09/17/17 Range/Units 06:25 06:25 06:25 WBC 7.7 (4.3-11.1) K/mcL RBC 4.05 (3.82-4.97) M/mcL Hgb 12.6 (11.5-15.4) g/dL Hct 38.9 (35.3-44.9) % MCV 96.0 (83.0-100.0) fL MCH 31.1 (28.0-33.3) pg MCHC 32.4 (31.6-35.5) g/dL RDW 13.2 (11.5-14.5) % Plt Count 237 (140-400) K/mcL MPV 9.8 (9.4-12.4) fL Immature Gran % 0.6 (0-4) % Seg Neutrophils % 70.3 % Lymphocytes % 20.9 % Monocytes % 6.6 % Eosinophils % 1.3 % Basophils % 0.3 % Neutrophils # 5.4 (1.6-8.9) K/mcL Lymphocytes # 1.6 (0.6-4.6) K/mcL Monocytes # 0.5 (0.0-1.3) K/mcL Eosinophils # 0.1 (0.0-0.6) K/mcL Basophils # 0.0 (0.0-0.2) K/mcL PT 14.5 H (9.4-12.1) Seconds INR 1.3 APTT 26.2 (26.0-36.0) Seconds Sodium 141 (136-145) mEq/L Potassium 3.6 (3.5-4.5) mEq/L Chloride 108 (98-109) mEq/L Carbon Dioxide 24 (19-29) mEq/L BUN 26 H (7-20) mg/dL Creatinine 0.71 (0.57-1.11) mg/dL Est GFR ( Amer) > 60 (> 60) Est GFR (Non-Af Amer) > 60 (> 60) BUN/Creatinine Ratio 37 H (6-26) Glucose 75 (70-99) mg/dL Calculated Osmolality 295 (280-300) Calcium 9.0 (8.6-10.8) mg/dL Troponin I (0-0.03) ng/mL 09/17/17 Range/Units 06:25 WBC (4.3-11.1) K/mcL RBC (3.82-4.97) M/mcL Hgb (11.5-15.4) g/dL Hct (35.3-44.9) % MCV (83.0-100.0) fL MCH (28.0-33.3) pg MCHC (31.6-35.5) g/dL RDW (11.5-14.5) % Plt Count (140-400) K/mcL MPV (9.4-12.4) fL Immature Gran % (0-4) % Seg Neutrophils % % Lymphocytes % % Monocytes % % Eosinophils % % Basophils % % Neutrophils # (1.6-8.9) K/mcL Lymphocytes # (0.6-4.6) K/mcL Monocytes # (0.0-1.3) K/mcL Eosinophils # (0.0-0.6) K/mcL Basophils # (0.0-0.2) K/mcL PT (9.4-12.1) Seconds INR APTT (26.0-36.0) Seconds Sodium (136-145) mEq/L Potassium (3.5-4.5) mEq/L Chloride (98-109) mEq/L Carbon Dioxide (19-29) mEq/L BUN (7-20) mg/dL Creatinine (0.57-1.11) mg/dL Est GFR ( Amer) (> 60) Est GFR (Non-Af Amer) (> 60) BUN/Creatinine Ratio (6-26) Glucose (70-99) mg/dL Calculated Osmolality (280-300) Calcium (8.6-10.8) mg/dL Troponin I 0.01 (0-0.03) ng/mL - Radiology Data Radiology results reviewed: Yes I reviewed the patient's radiology results. Chest X-Ray 09/17/17 06:12 IMPRESSION: No acute disease. D/ / Brady Mijares MD / Brady Mijares MD Interpreting Provider: Brady Mijares MD Heart Score - Score History: Moderately Suspicious EKG: Normal Age: Greater than 65 Risk Factors: 1-2 risk factors Troponin: Less than normal limit HEART Score Total: 4 S.B.Danna - [place] Situation: Demographics, MOA Background: Presenting Complaint, Relevant PMH, Meds, & Allergies Assessment: Vital Signs, Course and respsone to treatment, Exam Concerns, Patient/Family Expectation, Pertinant Lab Results Recommendation: Barrier(s) to disposition, Recommendation based on pending studies, treatments, or consults S.BStephanie Report Given to: Dr. Lui Simmons Repor Time: 07:39
[2017-09-17] MEDS ORDERED: MOM Conc 10 ML UD.LIQ PO PRN (09:53)
[2017-09-17] MEDS ORDERED: Mag Hydrox/Al Hydrox/Simeth 30 ML UDC PO PRN (09:53)
[2017-09-17] MEDS ORDERED: Naloxone 0.4 MG/ML INJ IVP PRN (09:53)
[2017-09-17] MEDS ORDERED: Acetaminophen 325 MG TABLET PO PRN (09:53)
[2017-09-17] MEDS ORDERED: diazePAM 5 MG TABLET PO PRN (09:56)
--- NOTE | 2017-09-17 11:56 | Internal Med History&Physical ---
Date of Encounter: 09/17/17 Time of Encounter: 09:20 Assessment and Plan (1) Unstable angina Current visit: Yes Status: Suspected Pt awakened with chest pain multiple times during the night. Relieved with nitro. Currently asymptomatic. Plan: Troponin cycling Telemetry Continue home meds Cardiology eval (had neg stress in 02/2017) (2) Hypertension Current visit: No Status: Chronic Continue home medications. Qualifiers: Hypertension type: essential hypertension Qualified Code(s): I10 - Essential (primary) hypertension (3) Paroxysmal atrial fibrillation Current visit: No Status: Chronic Currently paced. (4) Sick sinus syndrome Current visit: No Status: Chronic s/p pacemaker. (5) Hx of breast cancer Current visit: Yes Status: Acute Internal Medicine - H&P: HPI Chief complaint: Chest pain Admitted From: Emergency Dept Plans for Post Hospital Care: Home History of present illness: Ms. Crump is a 71 year old female with hx of pacer in 02/2017 presented to ED with chest pain. Pt said she awoke about 0230 with substernal chest discomfort. She took one nitro with relief but had recurrent discomfort at 0330. She again took nitro with improvement. She awoke later in the morning with discomfort and came to ED. At the present time she is pain free. No assoc symptoms at the time - no SOB, diaphoresis or nausea. Stress test in 2016 was negative. Currently she has no complaints. Past Med Surg Social Fam HX - Past Medical History Source: patient, old records reviewed Medical history: arthritis, atrial fibrillation, cancer, hyperlipidemia, hypertension Psychiatric history: no psych history - Past Surgical History Surgical History: appendectomy, cholecystectomy, hysterectomy, pacemaker - Social History Smoking Status: Never smoker Smokeless Tobacco Status: No Alcohol use: none Drug use: none Current living situation: With Family Activity Level: Independent ambulation - Family History Father Hx Family Neurologic Disorders: Yes (CVA) Mother Hx Family Cancer: Yes (colon) Internal Medicine - H&P: Meds Calcium Carbonate/Vitamin D3 [Calcium 600 + Vit D Softgel] 1 each PO BID [History] Potassium Chloride [K-Tab ER] 20 meq PO TID 11/13/15 [History] hydroCHLOROthiazide [Hydrochlorothiazide] 25 mg PO DAILY 11/13/15 [History] Cholecalciferol (D-3) [Vitamin D] 5,000 unit PO DAILY 09/17/16 [History] Raloxifene [Evista] 60 mg PO DAILY #90 tablet 11/15/16 [Rx] diazePAM [Valium] 5 mg PO HS PRN 12/31/16 [History] Magnesium Oxide [Mag-Ox] 400 mg PO BID #60 tablet 01/01/17 [Rx] Biotin 10 mg PO DAILY 02/20/17 [History] Apixaban [Eliquis] 5 mg PO BID #60 tablet 02/22/17 [Rx] Sotalol [Betapace] 40 mg PO Q12HR #30 tablet 02/22/17 [Rx] Gabapentin [Neurontin] 100 mg PO TID 09/17/17 [History] 3 Allergy/AdvReac Type Severity Reaction Status Date / Time methocarbamol [From Robaxin] Allergy Hives Verified 09/17/17 06:02 promethazine [From Phenergan] AdvReac Muscle Pain Verified 09/17/17 06:02 All Systems PM: A 10-system review of systems was performed and is negative for pertinent findings except as documented above in the HPI. - Constitutional Constitutional: no chills, no fatigue, no fever(s), no malaise - EENT Eyes: no blurry vision, no discharge, no pain Ears: no decreased hearing Nose, mouth and throat: no dry mouth, no nasal discharge, no sinus pain - Cardiovascular Cardiovascular ROS IM: chest pain, no diaphoresis, no dyspnea, no orthopnea - Respiratory Respiratory: no dyspnea, no dyspnea on exertion, no pain with cough - Gastrointestinal Gastrointestinal: no bloating, no constipation, no melena - Musculoskeletal Musculoskeletal ROS IM: no arthralgias, no myalgias, no stiffness - Integumentary Integumentary IM: no erythema, no new lesions, no rash - Neurological Neurological ROS: no abnormal speech, no dizziness, no memory loss - Endocrine Endocrine IM: no cold intolerance, no excessive sweating, no flushing - Hematologic/Lymphatic Hematologic/Lymphatic: no easy bleeding - Allergic/Immunologic Allergic/Immunologic: no throat swelling, no itchy eyes - Constitutional Vitals: Temp Pulse Resp BP Pulse Ox 97.9 F 63 16 165/88 98 09/17/17 11:01 09/17/17 11:09/17/17 11:01 09/17/17 11:01 09/17/17 11:01 General appearance: Present: A&O X 3, pleasant, answers questions appropriately - Head Head exam: Present: atraumatic, normocephalic - Eye Eye exam: Present: EOMI, PERRL, conjuntiva pink - ENT ENT exam: Present: mucous membranes moist - Respiratory Respiratory exam: Present: CTAB. Absent: rales, rhonchi, wheezes - Cardiovascular Cardiovascular exam: Present: RRR. Absent: tachycardia - GI/Abdominal GI/Abdominal exam: Present: normal bowel sounds, soft. Absent: mass, tenderness - Extremities Exam Extremities exam: Present: full ROM, warm. Absent: tenderness - Back Exam Back exam: Absent: paraspinal tenderness - Neurological Exam Neurological exam: Present: alert, oriented X3, no focal deficits - Psychiatric Psychiatric exam: Present: normal affect, normal mood - Skin Skin exam: Present: dry, warm. Absent: rash Internal Med - H&P Results - Labs CBC & Chem 7: 09/17/17 06:25 09/17/17 06:25 Labs: Cardiac Enzymes 09/17/17 Range/Units 10:23 Troponin I 0.00 (0-0.03) ng/mL - EKG Data -: EKG Interpreted by Myself - EKG Data Prior EKG available for review: yes When compared to previous EKG: there is no significant change EKG comments: 09/17/17 15:52 Paced rhythm.
--- NOTE | 2017-09-17 13:15 | Electrocardiograph Report ---
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
[2017-09-17] MEDS: Gabapentin 100 MG CAPSULE PO SCH ×2 (15:49→21:14)
[2017-09-17] MEDS: Magnesium Oxide 400 MG TABLET PO SCH (21:14)
[2017-09-18 04:44] LABS: Basophils % 0.3 %; Eosinophils # 0.1 K/mcL (0.0-0.6); Eosinophils % 2.4 %; Hemoglobin 11.5 g/dL (11.5-15.4); Immature Granulocytes % 0.5 % (0-4); Lymphocytes # 1.1 K/mcL (0.6-4.6); Lymphocytes % 18.3 %; Mean Corpuscular HGB Conc 32.9 g/dL (31.6-35.5); Mean Corpuscular Hemoglobin 31.6 pg (28.0-33.3); Mean Corpuscular Volume 96.2 fL (83.0-100.0); Mean Platelet Volume 9.8 fL (9.4-12.4); Monocytes # 0.4 K/mcL (0.0-1.3); Monocytes % 6.1 %; Neutrophils # 4.3 K/mcL (1.6-8.9); Platelet Count 207 K/mcL (140-400); Red Blood Count 3.64 M/mcL (3.82-4.97); Red Cell Distribution Width 13.2 % (11.5-14.5); Segmented Neutrophils % 72.4 %
[2017-09-18 04:52] LABS: BUN/Creatinine Ratio 31 (6-26); Blood Urea Nitrogen 25 mg/dL (7-20); Calcium 8.4 mg/dL (8.6-10.8); Carbon Dioxide 28 mEq/L (19-29); Chloride 107 mEq/L (98-109); Chol/HDL Ratio 3.1 (0-4.9); Cholesterol 202 mg/dL (< 200); Glucose 73 mg/dL (70-99); HDL Cholesterol 66 mg/dL (40-59); LDL Cholesterol,Calculated 119 mg/dL (0-99); Magnesium 1.6 mg/dL (1.6-2.6); Osmolality,Calculated 295 (280-300); Potassium 4.1 mEq/L (3.5-4.5); Sodium 141 mEq/L (136-145); Triglycerides 87 mg/dL (< 150); eGFR For African Americans > 60 (> 60); eGFR For Non-African Americans > 60 (> 60)
[2017-09-18] MEDS: Magnesium Oxide 400 MG TABLET PO SCH (10:55)
[2017-09-18] MEDS: Gabapentin 100 MG CAPSULE PO SCH ×2 (10:55→15:12)
--- NOTE | 2017-09-18 13:59 | Cardiology Consult Note ---
Date of Encounter: 09/17/17 Time of Encounter: 14:00 Assessment and Plan (1) Chest pain Current Visit: Yes Status: Acute Patient had atypical chest pain prompting her presentation to the ER. So far, cardiac workup unremarkable; no acute ECG changes and negative troponin. She had a recent stress test that was negative and a C in 2013 demonstrating normal coronaries. Chest discomfort does not represent ACS. Further ischemic evaluation does not appear warranted at this time. She was recently seen by Dr. Ivan Jack as an outpatient where they discussed presence of SVT on her device interrogations. She largely was asymptomatic so the plan was to observe. Recommend doing a device interrogation today to determine if presenting symptoms correlate with dysrhythmia. On telemetry, she's only had infrequent short runs of SVT and has been asymptomatic during her stay. Otherwise, it is reasonable to add a trial of PPI. Qualifiers: Chest pain type: other chest pain Qualified Code(s): R07.89 - Other chest pain; R07.8 - Other chest pain Discussion w patient/family: The assessment and plan as outlined above was discussed with the patient and/or family members who expressed understanding and agreement. All questions were answered. Thank you for involving us in the care of your patient. Please call with any questions. History of Present Illness Consult date: 09/17/17 Requesting physician: Claire Castellanos Consult reason: Chest pain Chief complaint: chest pain History of present illness: Ms. Crump is a 71 year old female presenting with atypical chest pain. She states she was sleeping when she awoke with lower sternal discomfort prompting her to take a SL NTG. This helped but did not resolve discomfort. This reoccurred 3 times and on the third episode she decided to present to ER. Since admit, her troponins have been negative. She has an atrial paced rhythm on ECG and nonspecific ST findings - no new changes. She denies chest pain since admission. She denies recent chest pain at home. She has started doing water aerobics over the past month and was feeling fine without chest pain. Denies recent palpitations. Past Med Surg Social Fam HX - Past Medical History Attestation: Yes The following information was validated with the patient. Medical history: arthritis, atrial fibrillation, cancer, hyperlipidemia, hypertension Psychiatric history: no psych history - Past Surgical History Surgical History: appendectomy, cholecystectomy, hysterectomy, pacemaker - Social History Smoking Status: Never smoker Smokeless Tobacco Status: No Alcohol use: none Drug use: none - Family History Father Hx Family Cardiac Disorders: Yes (pacer) Hx Family Neurologic Disorders: Yes (CVA) Mother Living Status: Age at : 90 Cause of : colon cancer Hx Family Cardiac Disorders: No Hx Family Cancer: Yes (colon) Medications and Allergies Calcium Carbonate/Vitamin D3 [Calcium 600 + Vit D Softgel] 1 each PO BID [History] Potassium Chloride [K-Tab ER] 20 meq PO TID 11/13/15 [History] hydroCHLOROthiazide [Hydrochlorothiazide] 25 mg PO DAILY 11/13/15 [History] Cholecalciferol (D-3) [Vitamin D] 5,000 unit PO DAILY 09/17/16 [History] Raloxifene [Evista] 60 mg PO DAILY #90 tablet 11/15/16 [Rx] diazePAM [Valium] 5 mg PO HS PRN 12/31/16 [History] Magnesium Oxide [Mag-Ox] 400 mg PO BID #60 tablet 01/01/17 [Rx] Biotin 10 mg PO DAILY 02/20/17 [History] Apixaban [Eliquis] 5 mg PO BID #60 tablet 02/22/17 [Rx] Sotalol [Betapace] 40 mg PO Q12HR #30 tablet 02/22/17 [Rx] Gabapentin [Neurontin] 100 mg PO TID 09/17/17 [History] 3 Allergy/AdvReac Type Severity Reaction Status Date / Time methocarbamol [From Robaxin] Allergy Hives Verified 09/17/17 06:02 promethazine [From Phenergan] AdvReac Muscle Pain Verified 09/17/17 06:02 All Systems Review: A 10-system review of systems was performed and is negative for pertinent findings except as documented above in the HPI. - Cardiovascular Cardiovascular: as per HPI Physical Examination Vital Signs, Last 4 Hours Temp Pulse Resp BP Pulse Ox 09/18/17 10:52 98 F 59 16 129/75 95 General: Conversant, No Apparent Distress HEENT: Mucus Membranes Moist Neck: No JVD, Normal carotid pulses Cardiac: Reg Rate and Rhythm, Normal S1 and S2, No Murmur Lungs: Normal Breath Sounds, No Wheeze, Rales, Rhonchi Neuro: Alert and responsive, No focal deficits noted Abdomen: Soft, Non-Tender Extremities: No Edema Results 09/18/17 03:43 09/18/17 03:43 Lab Results 09/17/17 09/17/17 09/18/17 16:09 21:46 03:43 WBC 5.9 Hgb 11.5 Hct 35.0 L Plt Count 207 Sodium Potassium Chloride Carbon Dioxide BUN Creatinine Glucose Calcium Magnesium Troponin I 0.01 0.01 09/18/17 03:43 WBC Hgb Hct Plt Count Sodium 141 Potassium 4.1 Chloride 107 Carbon Dioxide 28 BUN 25 H Creatinine 0.81 Glucose 73 Calcium 8.4 L Magnesium 1.6 Troponin I - Imaging and Cardiology Stress Test: report reviewed Cardiac cath: report reviewed - EKG Interpretation EKG results cardiology: other (24h telemetry reviewed; demonstrates infrequent short runs of SVT, intermittent v pacing) Consult Discharge Plan - Plan Referrals: Marcos Bolanos DO [Primary Care Provider] -
--- NOTE | 2017-09-18 14:50 | Event Note ---
Date of Encounter: 09/18/17 Time of Encounter: 14:47 Pacemaker interrogation was complete. Demonstrated a brief short episode of SVT several days ago on the . This does not correlate with her symptoms that brought her into the ER. No further cardiac testing is warranted. Consider continuing PPI. Recommend outpatient PCP and Cardiology follow up. Will sign off.
[2017-09-18 15:01] VITALS: BP 102/68
--- NOTE | 2017-09-18 15:23 | Discharge Summary ---
Date of Encounter: 09/18/17 Time of Encounter: 15:21 - Discharge Diagnosis (1) Chest pain Priority: Primary Status: Resolved Qualifiers: Chest pain type: other chest pain Qualified Code(s): R07.89 - Other chest pain; R07.8 - Other chest pain (2) Paroxysmal atrial fibrillation Priority: Secondary Status: Chronic (3) Hypertension Priority: Secondary Status: Chronic Qualifiers: Hypertension type: essential hypertension Qualified Code(s): I10 - Essential (primary) hypertension - Discharge Medications Prescriptions: Atorvastatin [Lipitor] 40 mg PO HS #30 tablet Omeprazole [PriLOSEC] 40 mg PO DAILY #60 capsule. Home Medications: Calcium Carbonate/Vitamin D3 [Calcium 600 + Vit D Softgel] 1 each PO BID [History] Potassium Chloride [K-Tab ER] 20 meq PO TID 11/13/15 [History] hydroCHLOROthiazide [Hydrochlorothiazide] 25 mg PO DAILY 11/13/15 [History] Cholecalciferol (D-3) [Vitamin D] 5,000 unit PO DAILY 09/17/16 [History] Raloxifene [Evista] 60 mg PO DAILY #90 tablet 11/15/16 [Rx] diazePAM [Valium] 5 mg PO HS PRN 12/31/16 [History] Magnesium Oxide [Mag-Ox] 400 mg PO BID #60 tablet 01/01/17 [Rx] Biotin 10 mg PO DAILY 02/20/17 [History] Apixaban [Eliquis] 5 mg PO BID #60 tablet 02/22/17 [Rx] Sotalol [Betapace] 40 mg PO Q12HR #30 tablet 02/22/17 [Rx] Gabapentin [Neurontin] 100 mg PO TID 09/17/17 [History] Atorvastatin [Lipitor] 40 mg PO HS #30 tablet 09/18/17 [Rx] Omeprazole [PriLOSEC] 40 mg PO DAILY #60 capsule. 09/18/17 [Rx] Allergies/Adverse Reactions: 3 Allergy/AdvReac Type Severity Reaction Status Date / Time methocarbamol [From Robaxin] Allergy Hives Verified 09/17/17 06:02 promethazine [From Phenergan] AdvReac Muscle Pain Verified 09/17/17 06:02 Date of admission: 09/17/17 08:39 Primary care physician: Jake Alas Consults: 09/17/17 09:55 Consult to Physician [CONS] Routine Consulting Provider: Rupinder Newman Reason for Consult: Chest pain. Time Notified: 08:30 Call Completed: Yes Discharging clinician: Eri Coleman Anticipated date of discharge: 09/18/17 - Patient Status Disposition: Home, Self-Care Condition: Good Functional capacity at discharge: independent ambulation Overall status at discharge: patient is progressing back to baseline - Discharge Instructions Instructions: Chest Pain (DC) Follow Up With: Marcos oBlanos DO [Primary Care Provider] - Additional Instructions: Follow-up appointments: If there is not an appointment listed below, please call your physician and schedule a follow-up appointment. If you have congestive heart failure and your symptoms return, make an appointment with your physician. Medication List: Carry an up to date list of medications you are taking at all time. We have given you an updated medication list including any new medications that you have been prescribed. Please provide that list to your primary provider Symptoms: If your condition changes or you experience any of the following symptoms, notify your physician immediately: Unusual or worsening pain, fever, persistent nausea and vomiting, bleeding, increase in swelling (especially in your legs), sudden weight gain, extreme dizziness, chest pain, increased drainage or redness from a wound or incision. Go to the emergency department if you experience a problem with breathing. Weights: If you have a history of swelling or shortness of breath, weigh yourself daily and notify your physician if you have a weight gain of two or more pounds in one day or 5 or more pounds in a week. If you experience any of the warning signs for stroke: Sudden numbness or weakness of the face, arm or leg; especially on one side of the body, sudden confusion, trouble speaking or understanding, sudden trouble seeing in one or both eyes, sudden trouble walking, dizziness, loss of balance or coordination, sudden sever headache with no cause; Call 911 or go to the emergency room. Stroke is a medical emergency. Some risk factors for stroke: Age, cigarette smoking, diabetes, excessive alcohol consumption, family history , high blood pressure, overweight, physical inactivity, prior stroke, heart attack, diagnosis of carotid artery stenosis or other artery disease. If you smoke, STOP: Smoking or tobacco use significantly increases your risk of heart and lung disease. Your chance of disease greatly increases if you continue to smoke. For more information, call the [place] tobacco quit line for smoking cessation QUIT-NOW ( ) - Diet and Activity Activity: resume usual activities as tolerated Diet: low fat, low cholesterol, low salt diet Hospital course: Ms. Crump is a 71 year old female with the above medical problems who was admitted with retrosternal chest pain. Initial labs, EKG and chest x-ray done in the emergency room showed no acute abnormality. Serial troponins remained normal, telemetry showed short runs of SVT. Cardiology was consulted and patient underwent pacemaker device check, which showed a brief episode of SVT a few days prior to her presentation, which is likely unrelated to this presentation. She has been started on PPI and is doing better today. She is otherwise medically stable for discharge with outpatient cardiology follow-up. - Time Spent with Patient Total time spent providing and/or coordinating discharge services: Greater than 30 minutes (40 min) - Constitutional Vitals: Temp Pulse Resp BP Pulse Ox 98.2 F 60 16 102/68 97 09/18/17 14:58 09/18/17 14:58 09/18/17 14:58 09/18/17 14:58 09/18/17 14:58 General appearance: Present: A&O X 3, pleasant, answers questions appropriately - Respiratory Respiratory exam: Present: CTAB. Absent: accessory muscle use, rales, rhonchi, wheezes - Cardiovascular Cardiovascular exam: Present: RRR, +S1, +S2. Absent: diastolic murmur, gallop, rubs, systolic murmur
== END 2017-09-18 16:50 | disposition home or self-care (01) ==
LOC: 3BNU 05:55 → EMEROO 05:55 → SUATTDRO 08:39 → 3BNU 10:10
PROVIDERS: ADMIT Internal Medicine; ATTEND Internal Medicine

== ENCOUNTER 2019-10-30 09:45 | Inpatient (IN) ==
[2019-10-30] MEDS ORDERED: CeFAZolin Syr 2,000MG/20 ML 2,000 MG/20 ML SYRINGE IVPB ONE (10:05)
[2019-10-30] MEDS ORDERED: Ringers Solution, Lactated 1,000 ML IVC SCH ×2 (10:15→14:49)
[2019-10-30] MEDS ORDERED: *HR* FentaNYL (PF) 100 MCG/2 ML VIAL IVP PRN (10:22)
[2019-10-30] MEDS ORDERED: *HR* OxyCODONE Immed Rel 5 MG TABLET PO PRN ×2 (10:22→14:49)
[2019-10-30] MEDS ORDERED: Famotidine 20 MG/2 ML VIAL IVP ONE (10:22)
[2019-10-30] MEDS ORDERED: diazePAM 5 MG TABLET PO ONE (10:22)
[2019-10-30] MEDS ORDERED: Ondansetron ODT 4 MG TAB.RAPDIS SL ONE (10:22)
[2019-10-30] MEDS ORDERED: *HR* HYDROmorphone (PF) 1 MG/ML SYRINGE IVP PRN (10:22)
[2019-10-30] MEDS ORDERED: *HR* Meperidine 25 MG/ML SYRINGE IVP PRN (10:22)
[2019-10-30] MEDS ORDERED: Acetaminophen IV 500 MG/50 ML INFUS..BTL IVPB ONE (10:24)
[2019-10-30] MEDS ORDERED: Ropivacaine/PF 0.5% 30 ML VIAL ONE (10:28)
[2019-10-30] MEDS ORDERED: Acetaminophen IV 0 MG/0 ML INFUS..BTL ONE (10:28)
[2019-10-30] MEDS ORDERED: *HR* Propofol 200 MG/20 ML VIAL IVP ONE (11:30)
[2019-10-30] MEDS ORDERED: Lidocaine -MPF 2% 2 ML VIAL ONE (11:30)
[2019-10-30] MEDS ORDERED: Ethanol\\Acetic Acid\\Na Ace\\Ben 1,000 ML IRRIG.SOLN IR ONE (12:22)
[2019-10-30] MEDS ORDERED: ROPIVACAINE/PF/NS 0.25% 1 EACH SYRINGE INTRAART ONE (12:25)
[2019-10-30] MEDS ORDERED: Lidocaine/EPI 1:200k 2% PF 10 ML VIAL ONE (12:25)
[2019-10-30 12:59] LABS: Hematocrit 28.5 % (35.3-44.9); Hemoglobin 9.2 g/dL (11.5-15.4)
[2019-10-30] MEDS ORDERED: Dexamethasone 4 MG/ML VIAL ONE (13:55)
[2019-10-30] MEDS ORDERED: *HR* Succinylcholine 200 MG/10 ML VIAL IVP ONE (13:55)
[2019-10-30] MEDS ORDERED: Ondansetron 4 MG/2 ML VIAL ONE (13:55)
[2019-10-30] MEDS ORDERED: EPHEDrine 50 MG/ML VIAL ONE (14:03)
[2019-10-30] MEDS ORDERED: MOM Conc 10 ML UD.LIQ PO PRN (14:49)
[2019-10-30] MEDS ORDERED: Sennosides 8.6 MG TABLET PO PRN (14:49)
[2019-10-30] MEDS ORDERED: Temazepam 15 MG CAPSULE PO PRN (14:49)
[2019-10-30] MEDS ORDERED: Ondansetron 4 MG/2 ML VIAL IVP PRN (14:49)
[2019-10-30] MEDS ORDERED: Naloxone 0.4 MG/ML INJ IVP PRN (14:49)
[2019-10-30] MEDS ORDERED: *HR* OxyCODONE/APAP 5/325 TABLET PO PRN (14:49)
[2019-10-30] MEDS ORDERED: diazePAM 5 MG TABLET PO PRN (14:49)
[2019-10-30 16:54] VITALS: BP 125/62
[2019-10-30] MEDS ORDERED: Magnesium Oxide 400 MG TABLET PO SCH (21:00)
[2019-10-30] MEDS ORDERED: Apixaban 5 MG TABLET PO SCH (21:00)
== END 2019-10-30 21:08 | disposition home or self-care (01) | DRG 483 ==
LOC: SAMDAY 09:45 → 3NENU 14:52
PROVIDERS: ADMIT Orthopaedic Surgery; ATTEND Orthopaedic Surgery

== ENCOUNTER 2022-01-17 10:55 | Observation (INO) ==
[2022-01-17] MEDS ORDERED: Aspirin 81 MG TAB.CHEW PO ONE (11:09)
[2022-01-17] MEDS ORDERED: 0.9 % Sodium Chloride 500 ML IVC ONE (11:09)
[2022-01-17 11:35] LABS: Basophils # 0.1 K/mcL (0.0-0.2); Basophils % 1.4 %; Eosinophils # 0.2 K/mcL (0.0-0.6); Eosinophils % 4.4 %; Hematocrit 36.3 % (35.3-44.9); Hemoglobin 11.8 g/dL (11.5-15.4); Immature Granulocytes % 0.2 % (0-4); Lymphocytes # 0.8 K/mcL (0.6-4.6); Lymphocytes % 19.1 %; Mean Corpuscular HGB Conc 32.5 g/dL (31.6-35.5); Mean Corpuscular Volume 101.4 fL (83.0-100.0); Mean Platelet Volume 10.4 fL (9.4-12.4); Monocytes # 0.6 K/mcL (0.0-1.3); Monocytes % 13.1 %; Neutrophils # 2.7 K/mcL (1.6-8.9); Platelet Count 170 K/mcL (140-400); Red Blood Count 3.58 M/mcL (3.82-4.97); Red Cell Distribution Width 15.3 % (11.5-14.5); Segmented Neutrophils % 61.8 %; White Blood Count 4.3 K/mcL (4.3-11.1)
[2022-01-17 11:42] LABS: INR 4.2
[2022-01-17 11:45] LABS: Activated Partial Thrombo Time 47.9 Seconds (26.0-36.0)
[2022-01-17 11:54] LABS: Prothrombin Time 46.4 Seconds (9.4-12.1)
[2022-01-17 11:55] LABS: BUN/Creatinine Ratio 17 (6-26); Blood Urea Nitrogen 14 mg/dL (8-23); Calcium 8.9 mg/dL (8.6-10.3); Carbon Dioxide 24 mEq/L (23-29); Chloride 110 mEq/L (98-107); Glucose 83 mg/dL (70-105); Lipase 20 Units/L (11-82); Osmolality,Calculated 290 (280-300); Potassium 3.7 mEq/L (3.5-5.1); Sodium 140 mEq/L (136-145); Troponin I < 0.03 ng/mL (< 0.04); eGFR For African Americans > 60 (> 60); eGFR For Non-African Americans > 60 (> 60)
[2022-01-17] MEDS ORDERED: Acetaminophen 325 MG TABLET PO ONE (12:53)
[2022-01-17] MEDS ORDERED: Furosemide 40 MG/4 ML VIAL IVP ONE (13:17)
[2022-01-17] MEDS ORDERED: Ondansetron ODT 4 MG TAB.RAPDIS SL PRN (13:42)
[2022-01-17] MEDS ORDERED: Melatonin 3 MG TABLET PO PRN (13:42)
[2022-01-17] MEDS ORDERED: Naloxone 0.4 MG/ML INJ IVP PRN (13:42)
[2022-01-17] MEDS ORDERED: Dextrose 4 GM Chewable Tablets PO PRN ×2 (13:47)
[2022-01-17] MEDS ORDERED: *HR* Dextrose 50 % in Water (Syg) 50 ML SYRINGE IVP PRN (13:47)
[2022-01-17] MEDS ORDERED: D5% in Water 1,000 ML IVC PRN (13:47)
[2022-01-17] MEDS ORDERED: hydroCHLOROthiazide 25 MG TABLET PO SCH (15:30)
[2022-01-17] MEDS ORDERED: Perflutren Lipid Microsphere 1.3 ML in 0.9 % Sodium Chloride 8.7 ML IVP PRN (15:31)
[2022-01-17] MEDS ORDERED: Nitroglycerin 0.4 MG TAB.SUBL SL PRN (16:25)
[2022-01-17] MEDS: carvediloL 6.25 MG TABLET PO SCH (16:28)
[2022-01-17] MEDS ORDERED: carvediloL 6.25 MG TABLET PO SCH (17:00)
[2022-01-17] MEDS ORDERED: Furosemide 20 MG/2 ML VIAL IVP SCH (21:00)
[2022-01-17] MEDS: Acetaminophen 325 MG TABLET PO PRN (22:08)
[2022-01-17] MEDS: Apixaban 5 MG TABLET PO SCH (22:08)
[2022-01-18 05:48] LABS: Hematocrit 31.6 % (35.3-44.9); Hemoglobin 10.7 g/dL (11.5-15.4); Mean Corpuscular HGB Conc 33.9 g/dL (31.6-35.5); Mean Corpuscular Volume 97.5 fL (83.0-100.0); Mean Platelet Volume 10.7 fL (9.4-12.4); Platelet Count 145 K/mcL (140-400); Red Blood Count 3.24 M/mcL (3.82-4.97); Red Cell Distribution Width 14.7 % (11.5-14.5); White Blood Count 3.1 K/mcL (4.3-11.1)
[2022-01-18] MEDS ORDERED: Regadenoson 0.4 MG/5 ML SYRINGE IVP ONE (05:52)
[2022-01-18 05:57] LABS: INR 3.8; Prothrombin Time 41.4 Seconds (9.4-12.1)
[2022-01-18 06:07] LABS: BUN/Creatinine Ratio 18 (6-26); Blood Urea Nitrogen 17 mg/dL (8-23); Calcium 8.9 mg/dL (8.6-10.3); Carbon Dioxide 30 mEq/L (23-29); Chloride 103 mEq/L (98-107); Chol/HDL Ratio 2.2 (0-4.9); Cholesterol 86 mg/dL (< 200); Glucose 90 mg/dL (70-105); HDL Cholesterol 39 mg/dL (40-59); LDL Cholesterol,Calculated 33 mg/dL (< 100); Magnesium 1.3 mg/dL (1.6-2.6); Osmolality,Calculated 293 (280-300); Potassium 2.9 mEq/L (3.5-5.1); Sodium 141 mEq/L (136-145); Triglycerides 70 mg/dL (< 150); eGFR For African Americans > 60 (> 60); eGFR For Non-African Americans 57 (> 60)
[2022-01-18] MEDS ORDERED: Furosemide 20 MG TABLET PO SCH (09:00)
[2022-01-18] MEDS: Aspirin Enteric Coated 81 MG Tablet PO SCH (09:39)
[2022-01-18] MEDS: Apixaban 5 MG TABLET PO SCH ×2 (09:39→21:16)
[2022-01-18] MEDS: carvediloL 6.25 MG TABLET PO SCH ×2 (09:40→17:12)
[2022-01-18] MEDS: Ascorbic Acid 500 MG TABLET PO SCH (09:41)
[2022-01-18] MEDS: Cyanocobalamin (B-12) 1,000 MCG TABLET PO SCH (09:41)
[2022-01-18 10:33] LABS: Estimated Average Glucose 94 mg/dl; Hemoglobin A1C 4.9 %
[2022-01-18 15:04] LABS: BUN/Creatinine Ratio 17 (6-26); Blood Urea Nitrogen 17 mg/dL (8-23); Calcium 9.3 mg/dL (8.6-10.3); Carbon Dioxide 31 mEq/L (23-29); Chloride 100 mEq/L (98-107); Glucose 109 mg/dL (70-105); Osmolality,Calculated 288 (280-300); Potassium 3.5 mEq/L (3.5-5.1); Sodium 138 mEq/L (136-145); eGFR For African Americans > 60 (> 60); eGFR For Non-African Americans 55 (> 60)
[2022-01-19 01:25] LABS: Hematocrit 27.1 % (35.3-44.9); Hemoglobin 9.2 g/dL (11.5-15.4); Mean Corpuscular HGB Conc 33.9 g/dL (31.6-35.5); Mean Corpuscular Hemoglobin 33.8 pg (28.0-33.3); Mean Corpuscular Volume 99.6 fL (83.0-100.0); Mean Platelet Volume 10.9 fL (9.4-12.4); Platelet Count 146 K/mcL (140-400); Red Blood Count 2.72 M/mcL (3.82-4.97); White Blood Count 3.9 K/mcL (4.3-11.1)
[2022-01-19 01:45] LABS: Calcium 9.1 mg/dL (8.6-10.3); Magnesium 2.5 mg/dL (1.6-2.6); Phosphorous 2.6 mg/dL (2.7-4.5); Potassium 3.3 mEq/L (3.5-5.1)
[2022-01-19] MEDS: carvediloL 6.25 MG TABLET PO SCH ×2 (08:53→11:09)
[2022-01-19] MEDS: Ascorbic Acid 500 MG TABLET PO SCH (09:11)
[2022-01-19] MEDS: Aspirin Enteric Coated 81 MG Tablet PO SCH (09:11)
[2022-01-19] MEDS: Apixaban 5 MG TABLET PO SCH ×2 (09:11→21:22)
[2022-01-19] MEDS: Cyanocobalamin (B-12) 1,000 MCG TABLET PO SCH (09:11)
[2022-01-20 04:43] LABS: Hematocrit 28.1 % (35.3-44.9); Hemoglobin 9.1 g/dL (11.5-15.4); Mean Corpuscular HGB Conc 32.4 g/dL (31.6-35.5); Mean Corpuscular Hemoglobin 33.1 pg (28.0-33.3); Mean Corpuscular Volume 102.2 fL (83.0-100.0); Mean Platelet Volume 10.9 fL (9.4-12.4); Platelet Count 142 K/mcL (140-400); Red Blood Count 2.75 M/mcL (3.82-4.97); Red Cell Distribution Width 15.6 % (11.5-14.5); White Blood Count 3.6 K/mcL (4.3-11.1)
[2022-01-20 05:01] VITALS: PULSE 63
[2022-01-20 05:08] LABS: Calcium 9.2 mg/dL (8.6-10.3); Phosphorous 3.5 mg/dL (2.7-4.5); Potassium 4.4 mEq/L (3.5-5.1)
[2022-01-20] MEDS: Acetaminophen 325 MG TABLET PO PRN (05:25)
[2022-01-20 07:54] VITALS: BP 119/84; TEMP 98; O2SAT 99
[2022-01-20] MEDS: Apixaban 5 MG TABLET PO SCH (08:12)
[2022-01-20] MEDS: Ascorbic Acid 500 MG TABLET PO SCH (08:12)
[2022-01-20] MEDS: Cyanocobalamin (B-12) 1,000 MCG TABLET PO SCH (08:12)
[2022-01-20] MEDS: Aspirin Enteric Coated 81 MG Tablet PO SCH (08:12)
== END 2022-01-20 12:02 | disposition home or self-care (01) ==
LOC: EMEROOARM 10:55 → 2ANU 10:55 → SUATTDRO 13:30 → 2ANU 14:31
PROVIDERS: ADMIT Internal Medicine; ATTEND Internal Medicine

== ENCOUNTER 2022-02-03 18:53 | Observation (INO) ==
[2022-02-03] MEDS ORDERED: Isovue-370 500 ML BOTTLE IVP ONE (19:16)
[2022-02-03 19:41] LABS: Basophils # 0.1 K/mcL (0.0-0.2); Basophils % 1.4 %; Eosinophils # 0.2 K/mcL (0.0-0.6); Eosinophils % 5.1 %; Hematocrit 36.8 % (35.3-44.9); Hemoglobin 11.7 g/dL (11.5-15.4); Immature Granulocytes % 0.3 % (0-4); Lymphocytes # 0.9 K/mcL (0.6-4.6); Lymphocytes % 23.2 %; Mean Corpuscular HGB Conc 31.8 g/dL (31.6-35.5); Mean Corpuscular Hemoglobin 32.5 pg (28.0-33.3); Mean Corpuscular Volume 102.2 fL (83.0-100.0); Mean Platelet Volume 10.2 fL (9.4-12.4); Monocytes # 0.4 K/mcL (0.0-1.3); Monocytes % 10.5 %; Neutrophils # 2.2 K/mcL (1.6-8.9); Platelet Count 180 K/mcL (140-400); Segmented Neutrophils % 59.5 %; White Blood Count 3.7 K/mcL (4.3-11.1)
[2022-02-03 19:43] LABS: Bilirubin,Urine Negative (Negative); Blood,Urine Small (Negative); Clarity,Urine Clear (Clear); Color,Urine Light-Yellow (Yellow); Glucose,Urine (UA) 30 mg/dL (Normal); Ketones,Urine Negative (Negative); Leukocyte Esterase,Urine Trace (Negative); Mucus,Urine Few per lpf (None-Few); Nitrite,Urine Negative (Negative); Protein,Urine 50 mg/dL (Neg-Trace); Urobilinogen,Urine Normal (Normal)
[2022-02-03 19:50] LABS: INR 2.9; Prothrombin Time 31.6 Seconds (9.4-12.1)
[2022-02-03 19:53] LABS: Activated Partial Thrombo Time 44.5 Seconds (26.0-36.0)
[2022-02-03 19:59] LABS: Alanine Aminotransferase 12 Units/L (7-52); Albumin 3.5 g/dL (3.5-5.7); Albumin/Globulin Ratio 1.5 (1.1-2.2); Alkaline Phosphatase 94 Units/L (34-104); Aspartate Amino Transferase 28 Units/L (13-39); BUN/Creatinine Ratio 17 (6-26); Bilirubin,Direct 0.4 mg/dL (0.0-0.2); Bilirubin,Total 1.4 mg/dL (0.3-1.0); Blood Urea Nitrogen 15 mg/dL (8-23); Calcium 9.3 mg/dL (8.6-10.3); Carbon Dioxide 24 mEq/L (23-29); Chloride 109 mEq/L (98-107); Ethanol < 10 mg/dL (Less than 10); Globulin 2.3 g/dL (2.4-3.5); Glucose 122 mg/dL (70-105); Osmolality,Calculated 294 (280-300); Potassium 3.2 mEq/L (3.5-5.1); Sodium 141 mEq/L (136-145); Total Protein 5.8 g/dL (6.4-8.9); eGFR For African Americans > 60 (> 60); eGFR For Non-African Americans > 60 (> 60)
[2022-02-03 20:00] LABS: Troponin I < 0.03 ng/mL (< 0.04)
[2022-02-03 20:07] LABS: Amphetamine Screen,Urine Negative ng/mL (Cutoff=1000); Barbiturate Screen,Urine Negative ng/mL (Cutoff=200); Benzodiazepines Screen,Urine Positive ng/mL (Cutoff=200); Cannabinoid Screen,Urine Negative ng/mL (Cutoff = 50); Cocaine Screen,Urine Negative ng/mL (Cutoff= 300); Opiate Screen,Urine Negative ng/mL (Cutoff=300); Phencyclidine Screen,Urine Negative ng/mL (Cutoff=25)
[2022-02-03 20:13] LABS: Thyroid Stimulating Hormone 10.912 mcIU/mL (0.340-5.600)
[2022-02-04] MEDS ORDERED: Naloxone 0.4 MG/ML INJ IVP PRN (00:38)
[2022-02-04] MEDS ORDERED: Melatonin 3 MG TABLET PO PRN (00:38)
[2022-02-04] MEDS ORDERED: Acetaminophen 325 MG TABLET PO PRN (00:38)
[2022-02-04 01:33] LABS: VBG HCO3 25 mEq/L (21-27); VBG PCO2 41 mmHg (41-51); VBG PH 7.39 pH Units (7.32-7.42); VBG PO2 76 mmHg (25-50)
[2022-02-04 01:54] LABS: C-Reactive Protein < 5 mg/L (Less than 10)
[2022-02-04 01:56] LABS: Acetaminophen 13 mcg/mL (10-20); Alanine Aminotransferase 12 Units/L (7-52); Albumin 3.1 g/dL (3.5-5.7); Albumin/Globulin Ratio 1.9 (1.1-2.2); Alkaline Phosphatase 89 Units/L (34-104); Aspartate Amino Transferase 31 Units/L (13-39); BUN/Creatinine Ratio 16 (6-26); Bilirubin,Total 1.2 mg/dL (0.3-1.0); Blood Urea Nitrogen 14 mg/dL (8-23); Calcium 8.8 mg/dL (8.6-10.3); Carbon Dioxide 25 mEq/L (23-29); Chloride 109 mEq/L (98-107); Globulin 1.6 g/dL (2.4-3.5); Glucose 134 mg/dL (70-105); Magnesium 1.4 mg/dL (1.6-2.6); Osmolality,Calculated 296 (280-300); Phosphorous 2.7 mg/dL (2.7-4.5); Potassium 3.2 mEq/L (3.5-5.1); Salicylate < 2.5 mg/dL (15.0-30.0); Sodium 142 mEq/L (136-145); Total Protein 4.7 g/dL (6.4-8.9); eGFR For African Americans > 60 (> 60); eGFR For Non-African Americans > 60 (> 60)
[2022-02-04 02:06] LABS: INR 2.4
[2022-02-04 02:08] LABS: Activated Partial Thrombo Time 39.5 Seconds (26.0-36.0)
[2022-02-04 02:13] LABS: Adenovirus Not Detected (Not Detect); Bordetella Pertussis Not Detected (Not Detect); Chlamydophila pneumoniae Not Detected (Not Detect); Coronavirus 229E Not Detected (Not Detect); Coronavirus HKU1 Not Detected (Not Detect); Coronavirus NL63 Not Detected (Not Detect); Coronavirus OC43 Not Detected (Not Detect); Human Metapneumovirus Not Detected (Not Detect); Human Rhinovirus/Enterovirus Not Detected (Not Detect); Influenza A Subtype 2009 H1 Not Detected (Not Detect); Influenza B Not Detected (Not Detect); Mycoplasma pneumoniae Not Detected (Not Detect); Parainfluenza Virus 1 Not Detected (Not Detect); Parainfluenza Virus 2 Not Detected (Not Detect); Parainfluenza Virus 3 Not Detected (Not Detect); Parainfluenza Virus 4 Not Detected (Not Detect); Respiratory Syncytial Virus Not Detected (Not Detect); SARS-CoV-2 Not Detected (Not Detect)
[2022-02-04 02:14] LABS: Basophils % 1.4 %; Eosinophils # 0.2 K/mcL (0.0-0.6); Eosinophils % 6.4 %; Hematocrit 31.8 % (35.3-44.9); Hemoglobin 10.3 g/dL (11.5-15.4); Lymphocytes # 0.8 K/mcL (0.6-4.6); Lymphocytes % 27.1 %; Mean Corpuscular HGB Conc 32.4 g/dL (31.6-35.5); Mean Corpuscular Volume 101.9 fL (83.0-100.0); Mean Platelet Volume 10.6 fL (9.4-12.4); Monocytes # 0.4 K/mcL (0.0-1.3); Monocytes % 12.2 %; Neutrophils # 1.6 K/mcL (1.6-8.9); Platelet Count 165 K/mcL (140-400); Red Blood Count 3.12 M/mcL (3.82-4.97); Segmented Neutrophils % 52.9 %
[2022-02-04 02:21] LABS: Folate 12.6 ng/mL (3.0-16.0)
[2022-02-04] MEDS ORDERED: *HR* OxyCODONE Immed Rel 5 MG TABLET PO ONE (02:35)
[2022-02-04 02:56] LABS: % Iron Saturation 26 % (15-50); Iron 67 mcg/dL (50-170); Transferrin 187 mg/dL (203-362)
[2022-02-04] MEDS ORDERED: Furosemide 20 MG/2 ML VIAL IVP ONE (03:01)
[2022-02-04 03:14] LABS: Ferritin 53 ng/mL (10-120)
[2022-02-04 06:35] LABS: Hematocrit 35.7 % (35.3-44.9); Hemoglobin 11.7 g/dL (11.5-15.4)
[2022-02-04] MEDS: Apixaban 5 MG TABLET PO SCH ×2 (08:25→19:28)
[2022-02-04] MEDS: Aspirin 81 MG TAB.CHEW PO SCH (08:25)
[2022-02-04] MEDS: Chlorhexidine Rinse 15 ML MOUTHWASH MM SCH ×2 (08:26→19:28)
[2022-02-04] MEDS ORDERED: Isovue-370 500 ML BOTTLE IVP ONE (11:28)
[2022-02-04] MEDS: Furosemide 20 MG TABLET PO SCH (17:21)
[2022-02-05 04:41] LABS: Basophils # 0.1 K/mcL (0.0-0.2); Basophils % 1.2 %; Eosinophils # 0.2 K/mcL (0.0-0.6); Eosinophils % 3.7 %; Hematocrit 32.4 % (35.3-44.9); Hemoglobin 10.7 g/dL (11.5-15.4); Immature Granulocytes % 0.2 % (0-4); Lymphocytes # 0.8 K/mcL (0.6-4.6); Lymphocytes % 17.5 %; Mean Corpuscular Hemoglobin 32.7 pg (28.0-33.3); Mean Corpuscular Volume 99.1 fL (83.0-100.0); Mean Platelet Volume 10.9 fL (9.4-12.4); Monocytes # 0.4 K/mcL (0.0-1.3); Monocytes % 10.3 %; Neutrophils # 2.9 K/mcL (1.6-8.9); Platelet Count 155 K/mcL (140-400); Red Blood Count 3.27 M/mcL (3.82-4.97); Red Cell Distribution Width 14.6 % (11.5-14.5); Segmented Neutrophils % 67.1 %; White Blood Count 4.3 K/mcL (4.3-11.1)
[2022-02-05 05:04] LABS: BUN/Creatinine Ratio 17 (6-26); Blood Urea Nitrogen 17 mg/dL (8-23); Calcium 8.1 mg/dL (8.6-10.3); Carbon Dioxide 27 mEq/L (23-29); Chloride 105 mEq/L (98-107); Glucose 92 mg/dL (70-105); Magnesium 1.8 mg/dL (1.6-2.6); Osmolality,Calculated 289 (280-300); Phosphorous 2.6 mg/dL (2.7-4.5); Potassium 2.9 mEq/L (3.5-5.1); Sodium 139 mEq/L (136-145); eGFR For African Americans > 60 (> 60); eGFR For Non-African Americans 53 (> 60)
[2022-02-05] MEDS: Furosemide 20 MG TABLET PO SCH ×2 (05:24→17:43)
[2022-02-05] MEDS ORDERED: 0.9 % Sodium Chloride 250 ML IVC ONE (07:37)
[2022-02-05] MEDS: Aspirin 81 MG TAB.CHEW PO SCH (07:55)
[2022-02-05] MEDS: Apixaban 5 MG TABLET PO SCH ×2 (07:55→21:05)
[2022-02-05] MEDS: Chlorhexidine Rinse 15 ML MOUTHWASH MM SCH ×2 (07:56→21:05)
[2022-02-05] MEDS ORDERED: 0.9 % Sodium Chloride 250 ML IV ONE (08:26)
[2022-02-05 18:51] LABS: BUN/Creatinine Ratio 21 (6-26); Blood Urea Nitrogen 21 mg/dL (8-23); Calcium 8.6 mg/dL (8.6-10.3); Carbon Dioxide 27 mEq/L (23-29); Chloride 110 mEq/L (98-107); Glucose 123 mg/dL (70-105); Osmolality,Calculated 298 (280-300); Potassium 3.8 mEq/L (3.5-5.1); Sodium 142 mEq/L (136-145); eGFR For African Americans > 60 (> 60); eGFR For Non-African Americans 55 (> 60)
[2022-02-06] MEDS: Furosemide 20 MG TABLET PO SCH (05:45)
[2022-02-06 07:43] LABS: BUN/Creatinine Ratio 23 (6-26); Blood Urea Nitrogen 23 mg/dL (8-23); Calcium 8.2 mg/dL (8.6-10.3); Carbon Dioxide 29 mEq/L (23-29); Chloride 108 mEq/L (98-107); Glucose 79 mg/dL (70-105); Magnesium 1.6 mg/dL (1.6-2.6); Osmolality,Calculated 299 (280-300); Phosphorous 3.4 mg/dL (2.7-4.5); Potassium 2.9 mEq/L (3.5-5.1); Sodium 143 mEq/L (136-145); eGFR For African Americans > 60 (> 60); eGFR For Non-African Americans 53 (> 60)
[2022-02-06] MEDS ORDERED: polyethylene glycoL 3350 17 GM POWD.PACK PO PRN (08:20)
[2022-02-06] MEDS: Chlorhexidine Rinse 15 ML MOUTHWASH MM SCH (09:38)
[2022-02-06] MEDS: Aspirin 81 MG TAB.CHEW PO SCH (09:38)
[2022-02-06] MEDS: Apixaban 5 MG TABLET PO SCH (09:38)
[2022-02-06 10:46] VITALS: O2SAT 98
[2022-02-06 11:01] LABS: Influenza A PCR Negative (Negative); Influenza B PCR Negative (Negative); Resp. Syncytial Virus PCR Negative (Negative); SARS-CoV-2 by PCR (In House) Negative (Negative)
[2022-02-06 14:31] VITALS: BP 87/49; PULSE 60; TEMP 97.8
== END 2022-02-06 15:17 ==
LOC: 3BNU 18:53 → EMEROOARM 18:53 → SUATTDRO 23:57 → 3BNU 02-04 00:33
PROVIDERS: ADMIT Internal Medicine; ATTEND Internal Medicine

== ENCOUNTER 2022-08-27 14:22 | Inpatient (IN) ==
[2022-08-27] MEDS ORDERED: 0.9 % Sodium Chloride 1,000 ML IVC ONE (15:32)
[2022-08-27 15:37] LABS: Basophils # 0.1 K/mcL (0.0-0.2); Basophils % 1.3 %; Eosinophils # 0.4 K/mcL (0.0-0.6); Eosinophils % 6.4 %; Hematocrit 37.5 % (35.3-44.9); Hemoglobin 12.4 g/dL (11.5-15.4); Immature Granulocytes % 0.4 % (0-4); Lymphocytes # 0.9 K/mcL (0.6-4.6); Lymphocytes % 15.6 %; Mean Corpuscular HGB Conc 33.1 g/dL (31.6-35.5); Mean Corpuscular Hemoglobin 32.6 pg (28.0-33.3); Mean Corpuscular Volume 98.7 fL (83.0-100.0); Mean Platelet Volume 10.2 fL (9.4-12.4); Monocytes # 0.5 K/mcL (0.0-1.3); Monocytes % 8.2 %; Neutrophils # 3.7 K/mcL (1.6-8.9); Platelet Count 199 K/mcL (140-400); Red Cell Distribution Width 13.5 % (11.5-14.5); Segmented Neutrophils % 68.1 %; White Blood Count 5.5 K/mcL (4.3-11.1)
[2022-08-27 16:15] LABS: BUN/Creatinine Ratio 17 (6-26); Blood Urea Nitrogen 19 mg/dL (8-23); Carbon Dioxide 19 mEq/L (23-29); Chloride 111 mEq/L (98-107); Glucose 115 mg/dL (70-105); Osmolality,Calculated 297 (280-300); Sodium 142 mEq/L (136-145); Troponin I < 0.03 ng/mL (< 0.04)
[2022-08-27] MEDS ORDERED: Ondansetron 4 MG/2 ML VIAL IVP STA (17:00)
[2022-08-27 17:27] LABS: INR 2.8; Prothrombin Time 31.2 Seconds (9.4-12.1)
[2022-08-27 17:29] LABS: Activated Partial Thrombo Time 37.6 Seconds (26.0-36.0)
[2022-08-27] MEDS ORDERED: 0.9 % Sodium Chloride 1,000 ML IV ONE (17:48)
[2022-08-27] MEDS ORDERED: Iopamidol - 370 500 ML MLS IVP ONE (18:28)
[2022-08-27 18:33] LABS: VBG HCO3 27 mEq/L (21-27); VBG PCO2 52 mmHg (41-51); VBG PH 7.33 pH Units (7.32-7.42); VBG PO2 42 mmHg (25-50)
[2022-08-27 19:17] LABS: Influenza A PCR Negative (Negative); Influenza B PCR Negative (Negative); Resp. Syncytial Virus PCR Negative (Negative)
[2022-08-27 19:19] LABS: SARS-CoV-2 by PCR (In House) Negative (Negative)
[2022-08-27 20:18] LABS: Bacteria,Urine Few per hpf (None-Few); Bilirubin,Urine Negative (Negative); Blood,Urine Moderate (Negative); Clarity,Urine Turbid (Clear); Color,Urine Light-Yellow (Yellow); Glucose,Urine (UA) Normal (Normal); Hyaline Casts,Urine Few per lpf (None Seen); Ketones,Urine Negative (Negative); Leukocyte Esterase,Urine Small (Negative); Mucus,Urine Few per lpf (None-Few); Nitrite,Urine Negative (Negative); Protein,Urine Negative (Neg-Trace); Squamous Epithelial Cell,Urine Few per hpf (None-Few); Urobilinogen,Urine Normal (Normal)
[2022-08-27] MEDS ORDERED: cefTRIAXone 1,000 MG in 0.9 % Sodium Chloride Mini Bag 100 ML IVPB ONE ×2 (20:44→21:18)
[2022-08-27] MEDS ORDERED: Ondansetron ODT 4 MG TAB.RAPDIS SL PRN (21:15)
[2022-08-27] MEDS ORDERED: Melatonin 3 MG TABLET PO PRN (21:15)
[2022-08-27] MEDS ORDERED: Naloxone 0.4 MG/ML INJ IVP PRN (21:15)
[2022-08-27] MEDS ORDERED: rOPINIRole 0.25 MG TABLET PO PRN (23:20)
[2022-08-27] MEDS: Apixaban 5 MG TABLET PO SCH (23:44)
[2022-08-28 02:57] LABS: Basophils % 0.7 %; Eosinophils # 0.1 K/mcL (0.0-0.6); Eosinophils % 1.1 %; Hematocrit 28.4 % (35.3-44.9); Immature Granulocytes % 0.4 % (0-4); Lymphocytes # 0.6 K/mcL (0.6-4.6); Mean Corpuscular HGB Conc 32.7 g/dL (31.6-35.5); Mean Corpuscular Hemoglobin 32.1 pg (28.0-33.3); Mean Corpuscular Volume 97.9 fL (83.0-100.0); Mean Platelet Volume 10.5 fL (9.4-12.4); Monocytes # 0.4 K/mcL (0.0-1.3); Monocytes % 7.7 %; Neutrophils # 4.3 K/mcL (1.6-8.9); Platelet Count 147 K/mcL (140-400); Red Cell Distribution Width 13.4 % (11.5-14.5); Segmented Neutrophils % 79.1 %; White Blood Count 5.5 K/mcL (4.3-11.1)
[2022-08-28 02:59] LABS: Hemoglobin 9.3 g/dL (11.5-15.4)
[2022-08-28 03:08] LABS: Magnesium 1.3 mg/dL (1.6-2.6); Phosphorous 2.5 mg/dL (2.7-4.5); Potassium 3.4 mEq/L (3.5-5.1)
[2022-08-28] MEDS ORDERED: 0.9 % Sodium Chloride 1,000 ML IVC ONE (03:15)
[2022-08-28 03:21] LABS: Thyroid Stimulating Hormone 1.553 mcIU/mL (0.340-5.600)
[2022-08-28] MEDS ORDERED: Iopamidol - 370 500 ML MLS IVP ONE (03:34)
[2022-08-28] MEDS: Acetaminophen 325 MG TABLET PO PRN (06:28)
[2022-08-28] MEDS: Apixaban 5 MG TABLET PO SCH ×2 (08:42→19:36)
[2022-08-28] MEDS: cefTRIAXone 2,000 MG in 0.9 % Sodium Chloride Mini Bag 100 ML IVPB SCH (08:43)
[2022-08-28] MEDS ORDERED: 0.9 % Sodium Chloride 500 ML IVC ONE (08:53)
[2022-08-28] MEDS ORDERED: Furosemide 20 MG TABLET PO SCH (09:00)
[2022-08-29 06:20] LABS: Calcium 7.6 mg/dL (8.6-10.3); Magnesium 1.3 mg/dL (1.6-2.6); Potassium 4.1 mEq/L (3.5-5.1)
[2022-08-29] MEDS: Apixaban 5 MG TABLET PO SCH ×2 (08:13→20:29)
[2022-08-29] MEDS: cefTRIAXone 2,000 MG in 0.9 % Sodium Chloride Mini Bag 100 ML IVPB SCH (08:14)
[2022-08-29] MEDS: Acetaminophen 325 MG TABLET PO PRN ×2 (08:16→14:33)
[2022-08-29] MEDS ORDERED: Metoprolol XL (24 HR) Succ 25 MG TAB.ER.24H PO SCH (09:00)
[2022-08-29] MEDS ORDERED: Ibuprofen 600 MG TABLET PO ONE (12:40)
[2022-08-29] MEDS ORDERED: Magnesium Sulfate 1 GM/102 ML PIGGYBACK IVPB ONE (14:16)
[2022-08-30 05:19] LABS: Eosinophils # 0.3 K/mcL (0.0-0.6); Eosinophils % 8.6 %; Hematocrit 26.4 % (35.3-44.9); Hemoglobin 8.5 g/dL (11.5-15.4); Immature Granulocytes % 0.3 % (0-4); Lymphocytes # 0.7 K/mcL (0.6-4.6); Lymphocytes % 17.2 %; Mean Corpuscular HGB Conc 32.2 g/dL (31.6-35.5); Mean Corpuscular Hemoglobin 32.4 pg (28.0-33.3); Mean Corpuscular Volume 100.8 fL (83.0-100.0); Mean Platelet Volume 10.6 fL (9.4-12.4); Monocytes # 0.5 K/mcL (0.0-1.3); Monocytes % 12.2 %; Neutrophils # 2.3 K/mcL (1.6-8.9); Platelet Count 139 K/mcL (140-400); Red Blood Count 2.62 M/mcL (3.82-4.97); Red Cell Distribution Width 13.8 % (11.5-14.5); Segmented Neutrophils % 60.7 %; White Blood Count 3.8 K/mcL (4.3-11.1)
[2022-08-30 05:34] LABS: Calcium 8.1 mg/dL (8.6-10.3); Magnesium 1.7 mg/dL (1.6-2.6); Potassium 3.5 mEq/L (3.5-5.1)
[2022-08-30] MEDS: cefTRIAXone 2,000 MG in 0.9 % Sodium Chloride Mini Bag 100 ML IVPB SCH (08:51)
[2022-08-30] MEDS: Apixaban 5 MG TABLET PO SCH ×2 (08:51→19:49)
[2022-08-31] MEDS: Acetaminophen 325 MG TABLET PO PRN
[2022-08-31] MEDS: cefTRIAXone 2,000 MG in 0.9 % Sodium Chloride Mini Bag 100 ML IVPB SCH (07:30)
[2022-08-31] MEDS: Apixaban 5 MG TABLET PO SCH ×2 (07:31→20:00)
[2022-08-31 11:27] LABS: Basophils # 0.1 K/mcL (0.0-0.2); Basophils % 1.4 %; Eosinophils # 0.3 K/mcL (0.0-0.6); Hematocrit 28.1 % (35.3-44.9); Hemoglobin 9.3 g/dL (11.5-15.4); Immature Granulocytes % 0.3 % (0-4); Lymphocytes # 0.6 K/mcL (0.6-4.6); Lymphocytes % 16.4 %; Mean Corpuscular HGB Conc 33.1 g/dL (31.6-35.5); Mean Corpuscular Hemoglobin 32.4 pg (28.0-33.3); Mean Corpuscular Volume 97.9 fL (83.0-100.0); Mean Platelet Volume 10.2 fL (9.4-12.4); Monocytes # 0.5 K/mcL (0.0-1.3); Monocytes % 13.2 %; Neutrophils # 2.2 K/mcL (1.6-8.9); Platelet Count 157 K/mcL (140-400); Red Blood Count 2.87 M/mcL (3.82-4.97); Red Cell Distribution Width 13.9 % (11.5-14.5); Segmented Neutrophils % 59.7 %; White Blood Count 3.7 K/mcL (4.3-11.1)
[2022-08-31 11:38] LABS: Calcium 8.5 mg/dL (8.6-10.3); Potassium 3.4 mEq/L (3.5-5.1)
[2022-09-01 07:19] LABS: Eosinophils # 0.2 K/mcL (0.0-0.6); Eosinophils % 8.2 %; Hematocrit 26.3 % (35.3-44.9); Hemoglobin 8.6 g/dL (11.5-15.4); Lymphocytes # 0.5 K/mcL (0.6-4.6); Lymphocytes % 18.6 %; Mean Corpuscular HGB Conc 32.7 g/dL (31.6-35.5); Mean Corpuscular Volume 97.8 fL (83.0-100.0); Mean Platelet Volume 10.4 fL (9.4-12.4); Monocytes # 0.4 K/mcL (0.0-1.3); Monocytes % 13.7 %; Neutrophils # 1.7 K/mcL (1.6-8.9); Platelet Count 140 K/mcL (140-400); Red Blood Count 2.69 M/mcL (3.82-4.97); Segmented Neutrophils % 58.5 %; White Blood Count 2.9 K/mcL (4.3-11.1)
[2022-09-01 07:25] LABS: INR 1.8; Prothrombin Time 20.3 Seconds (9.4-12.1)
[2022-09-01 07:36] LABS: Calcium 8.6 mg/dL (8.6-10.3); Potassium 3.1 mEq/L (3.5-5.1)
[2022-09-01] MEDS: Apixaban 5 MG TABLET PO SCH ×2 (08:15→19:23)
[2022-09-01] MEDS ORDERED: Lidocaine -MPF 2% 2 ML VIAL ONE (10:30)
[2022-09-02 03:11] LABS: Hematocrit 25.4 % (35.3-44.9); Hemoglobin 8.3 g/dL (11.5-15.4)
[2022-09-02] MEDS: Apixaban 5 MG TABLET PO SCH (07:32)
[2022-09-02 07:52] VITALS: BP 110/72; PULSE 61; TEMP 97.5; O2SAT 99
== END 2022-09-02 10:59 | disposition home or self-care (01) | DRG 312 ==
LOC: 3BNU 14:22 → EMEROOARM 14:22 → SUATTDRO 21:38 → 3BNU 22:21
PROVIDERS: ADMIT Internal Medicine; ATTEND Registered Nurse
PROC: ENDOEBX (2022-09-01 11:00)